=== PATIENT | female | born 1970 | race Caucasian/White ===

== ENCOUNTER → 2017-09-18 21:00 | Outpatient (CLI) | payer OTHER, SELFPAY ==
[2017-09-18 21:35] LABS: Absolute Lymphocyte Count 2.49 X10^3/ul (0.83-4.51); Absolute Neutrophil Count 6.7 X10^3/uL (2.0-7.7); Basophil# 0.07 X10^3/uL; Basophil% 0.7 % (0-1); Eosinophil# 0.11 X10^3/uL; Eosinophils% 1.1 % (0-5); Hematocrit 43.1 % (37-47); Hemoglobin 12.9 g/dl (12.0-15.0); Lymphocyte # 2.49 X10^3/ul (4.0); Lymphocyte % 24.4 % (19-41); Mean Corp Hgb Conc 29.9 g/gl (32-36); Mean Corpuscular Hgb 28.5 pg (27.0-32.0); Mean Corpuscular Volume 95.4 fL (81-99); Mean Platelet Vol. 12.6 fl (6.2-12.0); Monocyte# 0.81 X10^3/uL; Monocyte% 7.9 % (0-10); Neutrophil % 65.6 % (47-70); POSITIVE COUNT NO; POSITIVE DIFFERENTIAL NO; POSITIVE MORPHOLOGY NO; Platelet Count 335 K/mm3 (150-450); RBC Distribution Width SD 48.5 fl (35.1-43.9); Red Blood Count 4.52 M/mm3 (4.2-5.4); White Blood Count 10.2 K/mm3 (4.4-11.0)
[2017-09-18 21:39] LABS: ALB/GLOB Ratio 0.9 RATIO (0.9-2.4); AST(SGOT) 16 U/L (15-37); Alanine Aminotransfer ALT/SGPT 20 U/L (13-56); Albumin, Serum 3.7 g/dL (3.2-5.0); Alkaline Phosphatase 150 U/L (45-117); Anion Gap 7 (5-15); BUN 12 mg/dL (7-18); BUN/Creat Ratio 14.2 RATIO (10-20); Calcium,Total 9.1 mg/dL (8.5-10.1); Chloride 105 mmol/L (98-107); Creatinine, Serum 0.84 mg/dL (0.55-1.02); EST Glomerular Filtration Rate 77 mL/min (>60); Est Glom Filt Rate - Afr Amer 93 mL/min (>60); Free T3 3.2 pg/mL (2.18-3.98); Globulin 4.3 g/dL (2.2-4.2); Glucose 98 mg/dL (74-106); Potassium 4.3 mmol/L (3.5-5.1); Sodium Level 140 mmol/L (136-145); T4 Free Direct 1.13 ng/dL (0.76-1.46); Thyroid Stim Hormone (TSH) 1.73 uIU/mL (0.358-3.74)
[2017-09-19 09:50] LABS: Vitamin D,25 Hydroxy 32.5 ng/mL (29.95-100.01)
[2017-09-20 16:10] LABS: Thyroid Peroxidase AB 16 IU/mL (0-34)
[2017-09-21 11:30] LABS: Thyroglobulin Antibody < 1.0 IU/mL (0.0-0.9)
== END ==
PROVIDERS: Visit Provider Nurse Practitioner
DX: R53.83 Other fatigue (principal); F41.9 Anxiety disorder, unspecified
CPT/HCPCS: 80053; 82306; 84439; 84443; 84481; 85025; 86376; 86800

== ENCOUNTER → 2017-09-21 13:03 | Outpatient (CLI) | payer OTHER, SELFPAY ==
--- NOTE | 2017-09-21 13:09 | RAD_ITS ---
STUDY: X-RAY CHEST REASON FOR EXAM: Female, 47 years old. Chronic cough TECHNIQUE: Frontal and lateral views COMPARISON: None. FINDINGS: The lungs are expanded. Mild basilar atelectasis. Normal size heart. Normal mediastinum and adrianna. Normal visualized pulmonary arteries. Normal visualized aortic arch and descending thoracic aorta. Normal visualized thoracic spine. Normal visualized ribs, clavicles, and shoulders. There is no demonstrated abnormality of the visualized soft tissue structures of the upper abdomen. RAD/Chest PA and Lateral IMPRESSION: Mild bibasilar atelectasis. Electronically Signed: Julio Gomez DO at 14:33 EDT Tel [phone], Service support ,
== END ==
PROVIDERS: Family Provider Nurse Practitioner; PCP Nurse Practitioner; Visit Provider Nurse Practitioner
DX: R05 Cough (principal); R53.83 Other fatigue
CPT/HCPCS: 71046

== ENCOUNTER → 2017-10-11 20:54 | Outpatient (CLI) | payer OTHER, SELFPAY ==
[2017-10-11 22:26] LABS: Alkaline Phosphatase 146 U/L (45-117); GGTP 25 U/L (5-55); Phosphorus 3.2 mg/dL (2.5-4.9)
== END ==
PROVIDERS: Family Provider Nurse Practitioner; PCP Nurse Practitioner; Visit Provider Nurse Practitioner
DX: R89.9 Unspecified abnormal finding in specimens from other organs, systems and tissues (principal); R74.8 Abnormal levels of other serum enzymes; R53.83 Other fatigue
CPT/HCPCS: 82306; 82977; 84075; 84100

== ENCOUNTER 2017-10-12 13:30 | Outpatient (RCR) | payer OTHER, SELFPAY ==
--- NOTE | 2017-10-09 11:38 | HP.PTEVAL_ITS ---
Patient's Visit Information GISSELLE PULIDO is a 47 year old F referred to Physical Therapy by Johnnie Alcala MD with a diagnosis of BPPV. Date of Evaluation: 10/09/17 Physical Therapist: Johnnie Winter DPT, OC - Visit Plan Frequency: 1x/Week Duration: 2-4 Weeks Plan: weekly as needed for positional treatment and balance check until better. - Subjective Subjective: A little dizzy. Feels off Been going on 6 weeks and started getting out of bed in am and everything spun for a couple minutes. Since then has been more lightheaded and wobbly intermittently. Worse with sitting andturning head. Lying back in bed will bring it on and looking up also will bring it on. Duration is a minute or less.Feels allright in between but still wobbly or lightheaded. No falls. Sleep is not interrupted. Not employed. Activities are close to normal but laundry needs to climb steps which she is more hesitant to do. helps her. Hobbies: Not much. Orioginally saw after hours care, did some blood work and EKG and sent to Dr. Alcala. - Objective Walks slowly into PT but safe on a frim flat surface. C/S AROM WNL and without pain. - L hallpike dhiraj, + R hallpike up torsional nystagmus 10 seconds, treated with Delroy and - test after treatment. - Balance Scores Functional Gait Assessment Score: 27 % Disability: 10.0000 - Goals Goal 1:: Abolish dizzyness. Goal Time Frame: 2-4 Weeks Goal 2:: Laundry as prior to onset on steps Goal Time Frame: 2-4 Weeks Goal 3:: Pt feel 100% back to normal Goal Time Frame: 2-4 Weeks - Rehabilitation Potential Physical Therapy Diagnosis: R posterior canal BPPV Rehabilitation Potential: Excellent - Anticipated Interventions Patient/Client Instruction: Educate patient on: Condition, Plan of Care For the Purpose of:: To increase tolerance to activity/condition/position Comment: positional treatments and ex. For the Purpose of:: To increase tolerance to activity/condition/position, To improve balance Thank you for the opportunity to evaluate your patient. For Medicare and Medicare HMO plans, please review the plan of care and approve it. It will need to be FAXED BACK to us at [phone] for Medicare purposes. Please let me know if there are questions or concerns regarding this plan of care. Physician Signature: Date:
--- NOTE | 2017-11-29 11:46 | HP.PTDCSUM ---
HP - PT D/C Summary It has been my pleasure to treat GISSELLE PULIDO under orders from Johnnie Alcala MD, for the diagnosis of BPPV for a total of 2 visit(s). Discharge Date: 10/12/17 Please see the following information for a summary of their discharge status. - Subjective Subjective: Much better but still feels like it might come on but doesn't. Might be a quick wave. Nearly 100% better. Activities have been normal, sleeping and lying no problem. - Overall Improvement % Improvement: 100 - Objective Objective/Function: - B hallpike and - roll test. FGA+3 adn perfect today. - Goals Goal 1:: Abolish dizzyness. Goal Progress: Goal Met Goal 2:: Laundry as prior to onset on steps Goal Progress: Goal Met Goal 3:: Pt feel 100% back to normal Goal Progress: Goal Met - Plan Plan: D/c - D/C Information Discharge Comments: Pt treated successfully with Chela Potts and is feeling all better. Will f/u with ENT as instructed in mid October. If there are questions or concerns regarding this patient's physical therapy, please feel free to call me at [phone]. Thank you for the referral of this patient. Sincerely, Johnnie Winter, SERAT, OC
== END 2017-10-12 19:00 | disposition home or self-care (01) ==
LOC: PT 13:30
PROVIDERS: Family Provider Nurse Practitioner; PCP Nurse Practitioner; Visit Provider Otolaryngology
DX: H81.10 Benign paroxysmal vertigo, unspecified ear (principal)
CPT/HCPCS: 97162; 97530

== ENCOUNTER → 2017-11-05 12:17 | Outpatient (CLI) | payer OTHER, SELFPAY ==
--- NOTE | 2017-11-05 12:19 | BI_ITS ---
MAMMOGRAPHY - BILATERAL SCREENING REASON FOR EXAM: Female, 47 years old. Routine annual screening examination. PERTINENT HISTORY: Mother with breast cancer. Aunt with breast cancer. TECHNIQUE: Digital bilateral breast debby (3D mammographic acquisition) in the CC and MLO projections. 2-D mediolateral oblique (MLO) and craniocaudad (CC) views of both breasts were obtained. CAD: Full Field Digital Mammography with Computer Added Detection was performed. COMPARISON: Comparison is made with prior examination dated October 11, 2012. FINDINGS: Breast Composition: There are scattered areas of fibroglandular density. There are no dominant masses or suspicious calcifications. Stable benign-appearing bilateral axillary lymph nodes. No other significant abnormalities are identified. There has been no significant change since the prior study. BI/SCREENING MAMM (CAD), BILAT IMPRESSION: Stable bilateral screening mammogram. Yearly follow-up mammogram recommended. (A) ASSESSMENT CATEGORY: BIRADS Category 2: Benign. A letter regarding these results will be sent to the patient by the facility within 30 days. Approximately 10% of breast cancers are not detected by mammography. A normal mammogram should not delay biopsy of a clinically suspicious abnormality. [id number] Electronically Signed: Germán Solitario MD at 14:49 EDT Tel [phone], Service support ,
== END ==
PROVIDERS: Family Provider Nurse Practitioner; PCP Nurse Practitioner; Visit Provider Nurse Practitioner
DX: Z12.31 Encounter for screening mammogram for malignant neoplasm of breast (principal)
CPT/HCPCS: 77063; 77067

== ENCOUNTER → 2019-01-25 16:31 | Outpatient (CLI) | payer OTHER, SELFPAY ==
[2019-01-25 11:30] VITALS: BMI 30.9
[2019-01-25 16:49] LABS: Hematocrit 43.8 % (37-47); Hemoglobin 13.8 g/dL (12.0-15.0); Mean Corp Hgb Conc 31.5 g/dL (32-36); Mean Corpuscular Hgb 30.2 pg (27.0-32.0); Mean Corpuscular Volume 95.8 fL (81-99); Mean Platelet Vol. 11.8 fl (6.2-12.0); Neutrophil % 65.7 % (47-70); Platelet Count 316 K/mm3 (150-450); RBC Distribution Width CV 13.7 % (11.6-14.6); Red Blood Count 4.57 M/mm3 (4.2-5.4); White Blood Count 9.7 K/mm3 (4.4-11.0)
[2019-01-25 16:50] LABS: Absolute Lymphocyte Count 2.31 X10^3/uL (0.83-4.51); Absolute Neutrophil Count 6.4 X10^3/uL (2.0-7.7); Basophil# 0.11 X10^3/uL; Basophil% 1.1 % (0-1); Eosinophil# 0.09 X10^3/uL; Eosinophils% 0.9 % (0-5); Lymphocyte # 2.31 X10^3/ul (4.0); Lymphocyte % 23.8 % (19-41); Monocyte# 0.79 X10^3/uL; Monocyte% 8.1 % (0-10); NRBC Flagged by Analyzer 0 % (0-5); Neutrophil # 6.38 X10^3/uL (2.7-7.7)
[2019-01-25 17:03] LABS: ALB/GLOB Ratio 1.1 RATIO (0.9-2.4); AST(SGOT) 10 U/L (15-37); Alanine Aminotransfer ALT/SGPT 17 U/L (13-56); Albumin, Serum 4.1 g/dL (3.2-5.0); Alkaline Phosphatase 147 U/L (45-117); Anion Gap 6 (5-15); BUN 10 mg/dL (7-18); BUN/Creat Ratio 12.5 RATIO (10-20); Calcium,Total 9.7 mg/dL (8.5-10.1); Chloride 107 mmol/L (98-107); Cholesterol 224 mg/dL (200); EST Glomerular Filtration Rate 81 mL/min (>60); Est Glom Filt Rate - Afr Amer 99 mL/min (>60); Globulin 3.8 g/dL (2.2-4.2); Glucose 105 mg/dL (74-106); High Density Lipoprotein 44 mg/dL; Potassium 4.6 mmol/L (3.5-5.1); Protein, Total 7.9 g/dL (6.4-8.2); Sodium Level 142 mmol/L (136-145); Triglycerides 185 mg/dL; Very Low Density Lipoprotein 37 mg/dL (5-40)
[2019-01-27 09:11] LABS: Vitamin D,25 Hydroxy 43.3 ng/mL (29.95-100.01)
== END ==
PROVIDERS: Family Provider Nurse Practitioner; PCP Nurse Practitioner; Visit Provider Nurse Practitioner
DX: F32.9 Major depressive disorder, single episode, unspecified (principal); E55.9 Vitamin D deficiency, unspecified
CPT/HCPCS: 80053; 80061; 82306; 85025

== ENCOUNTER → 2019-07-15 08:00 | Outpatient (CLI) | payer OTHER, SELFPAY ==
[2019-05-20 16:49] VITALS: BMI 29.8
[2019-07-22 06:36] VITALS: BP 164/103; PULSE 91; RESP 18; TEMP 36.7; O2SAT 97; BMI 32.2
== END ==
PROVIDERS: Anesthesiology; PCP Nurse Practitioner; Referring Provider Urology; Visit Provider Urology
DX: Z01.812 Encounter for preprocedural laboratory examination (principal); Z11.59 Encounter for screening for other viral diseases
CPT/HCPCS: 87635; G2023; J7120; U0003

== ENCOUNTER → 2019-10-23 09:54 | Outpatient (CLI) | payer OTHER, SELFPAY ==
[2019-10-08 11:19] VITALS: BMI 33.6
--- NOTE | 2019-10-23 09:56 | ECHOD_ITS ---
Version 2 Reason For Study: TACHYCARDIA Procedure Exam performed in department. Left Ventricle Normal LV size. The estimated ejection fraction is 55 %. No evidence for diastolic dysfunction. Right Ventricle Normal RV size. Normal systolic function. Atria Normal left atrium. Normal right atrium. No doppler evidence for ASD. Mitral Valve There is no mitral valve stenosis. No mitral valve insufficiency. Tricuspid Valve No significant tricuspid stenosis. Trivial tricuspid valve insufficiency. Unable to estimate RV systolic pressure due to insufficient tricuspid regurgitant envelope. Aortic Valve Trisinus/trileaflet aortic valve. There is no aortic stenosis. No aortic valve insufficiency. Pulmonic Valve There is no pulmonic valvular stenosis. Trivial pulmonic valve insufficiency. Great Vessels Normal aortic root. Pericardium/Pleural No pericardial effusion. MMode/2D Measurements & Calculations LVIDd: 4.6 cm IVSd: 0.89 cm Ao root diam: 3.2 cm LVIDs: 3.2 cm LVPWd: 0.95 cm RVDd: 2.8 cm FS: 29.8 % LAV(MOD-bp): 50.5 ml LA A4 area: 18.0 cm2 LA dimension(2D): 3.0 cm LAV(MOD-bp) Indexed: 28.3 ml/m2 LAV(MOD-sp2): 50.1 ml LAV(MOD-sp4): 48.1 ml RA A4 area: 12.0 cm2 Time Measurements MV dec time: 0.15 sec Doppler Measurements & Calculations MV E max pato: 42.0 cm/sec Lat Peak E' Pato: 7.6 cm/sec Med Peak E' Pato: 5.9 cm/sec MV A max pato: 82.4 cm/sec E/E' lat: 5.5 E/E' med: 7.2 MV E/A: 0.51 Ao V2 max: 100.7 cm/sec LV V1 max: 72.7 cm/sec TR max pato: 268.5 cm/sec Ao max P.1 mmHg LV V1 max P.1 mmHg TR max P.8 mmHg Interpretation Summary The estimated ejection fraction is 55 %. No evidence for diastolic dysfunction. Trivial pulmonic valve insufficiency. Ordering Physician: Gera Lee Referring Physician: CAROL ANN HANDY Performed By: Kristin Hong, ONUR, RVT
== END ==
PROVIDERS: PCP Nurse Practitioner; Referring Provider Specialist; Visit Provider Specialist
DX: R00.0 Tachycardia, unspecified (principal); I10 Essential (primary) hypertension
CPT/HCPCS: 93306

== ENCOUNTER → 2019-10-28 07:02 | Outpatient (CLI) | payer OTHER, SELFPAY ==
[2019-08-05 15:38] VITALS: BMI 32.3
[2019-09-23 06:25] VITALS: BP 154/104; PULSE 92; RESP 18; TEMP 36.7; O2SAT 95; BMI 33.6
[2019-09-23] MEDS: Lactated Ringers 1,000 ML 100 ML IV (07:03)
--- NOTE | 2019-09-23 07:41 | SUR.PREOP ---
Dr moore cancelled surgery due to bp, wants pt cleared by cardiology. p 86, pulse ox 93%, resps 14, bp 152/101. iv removed, pt will ring when she is dressed and ready to go.
[2019-10-08 11:19] VITALS: BMI 33.6
== END ==
LOC: SDC 09-23 06:00 → AC 09-23 07:46 → SDC 07:05
PROVIDERS: Anesthesiology; PCP Nurse Practitioner; Referring Provider Urology; Visit Provider Urology
DX: Z53.9 Procedure and treatment not carried out, unspecified reason (principal); Z11.59 Encounter for screening for other viral diseases
CPT/HCPCS: 87635; 94799; J7120; J2405; U0003

== ENCOUNTER 2019-12-09 05:57 | Day surgery (SDC) | payer OTHER, SELFPAY ==
[2019-10-08 11:19] VITALS: BMI 33.6
[2019-12-09] VITALS (13 sets, daily range): BP systolic 117–154; BP diastolic 77–98; PULSE 81–88; RESP 16–20; TEMP 36.2–37.1; O2SAT 89–95; BMI 32.8
[2019-12-09 06:38] LABS: Hematocrit 40.1 % (37-47); Hemoglobin 12.3 g/dL (12.0-15.0); Mean Corp Hgb Conc 30.7 g/dL (32-36); Mean Corpuscular Hgb 29.9 pg (27.0-32.0); Mean Corpuscular Volume 97.6 fL (81-99); Mean Platelet Vol. 10.4 fl (6.2-12.0); Platelet Count 283 K/mm3 (150-450); RBC Distribution Width CV 13.6 % (11.6-14.6); RBC Distribution Width SD 48.6 fl (35.1-43.9); Red Blood Count 4.11 M/mm3 (4.2-5.4); White Blood Count 8.4 K/mm3 (4.4-11.0)
[2019-12-09] MEDS: Lactated Ringers 1,000 ML 100 ML IV ×2 (06:46→09:16)
[2019-12-09] MEDS: Cefazolin 2 GM in 0.9% Normal Saline 100 ML IV (07:30)
--- NOTE | 2019-12-09 07:30 | OP.PCM_ITS ---
Problem List (1) Stress bladder incontinence, female Status: Acute Report of Operation Date of Procedure: 12/09/19 Pre-Operative Diagnosis: stress incontinence Post-Operative Diagnosis: same Surgery/Procedure Performed:: midurethral sling, cystoscopy Type of Anesthesia:: General Estimated Blood Loss (mL): 20cc Description of Procedure: The patient is a 49-year-old female with mixed urinary incontinence who presents for definitive management of her stress leakage with mid urethral sling insertion. Informed consent was obtained including a discussion of COVID-Leo. Patient was taken to the operating room and placed on the operating room table. Anesthesia monitored the head, neck, airway, IV access and vital signs throughout the case. Once anesthesia was apparently administered the patient was placed into dorsal lithotomy position was prepped and draped in usual sterile fashion. A 16 [place] Belcher catheter was inserted and the bladder was drained. The mid urethra was identified and injected submucosally with lidocaine with epinephrine. A midline vertical incision was made approximately 1 cm in length. Sharp and blunt dissection was performed on either side of the urethra with care being taken to avoid entry into the urethra. The urethral length was short. Using the trocars, the Altis mid urethral sling was passed into the obturator complexes bilaterally and left to sit flat against the urethra. There is no tension on the urethra. The tensioning suture was cut in the midline incision was closed using running interlocking 2-0 Vicryl. A small area of the vaginal mucosa was lacerated at the urethral meatus. Suture was placed here as well. A cystourethroscopy through the urethra under direct visualization was then performed. There were no lesions or abnormalities of the urinary bladder aside from some edema in the area of the bladder neck and urethra. Bilateral ureteral jets were observed. There were no mucosal abnormalities. The patient's bladder was left minimally full and the scope was removed. The patient was then awakened and taken to the recovery room in good condition. There were no complications during the procedure. Grafts/Implants Used: Altis midurethral sling - Complications none - Admit VTE Documentation VTE Present on Admission: Yes VTE Mechan Device Prophylaxis: SCD's VTE Pharm Prophylaxis ordered?: No Reason prophylaxis not ordered:: Treatment Not Indicated
--- NOTE | 2019-12-09 08:07 | DCINST_ITS ---
Discharge Diet: No Restrictions Discharge Activity: May not drive while taking narcotic pain medications., May Shower, - - No tub bathing, swimming, hot tubs. No lifting over 5 pounds. No strenuous activity or exercise. No intercourse, nothing per vagina. May resume sexual activity in: 4-6 weeks Call your doctor if your incision/area has: Continuous Slow Oozing, Sudden Increased Bleeding, Increased Pain/ Swelling, Increased Redness, Foul Smelling Discharge, Swelling at the incision site Call your doctor if you observe: Fever of 101 or Higher, Inability to urinate, Inability to have a bowel movement Allergies/Adverse Reactions: Allergies amoxicillin trihydrate [From Augmentin] Adverse Reaction (Verified 12/09/19 06:32) Nausea/Vom/Diarrhea potassium clavulanate [From Augmentin] Adverse Reaction (Verified 12/09/19 06:32) Nausea/Vom/Diarrhea Medications to take at Discharge Multivitamin [Daily Multiple Vitamin] 1 ea PO DAILY 06/14/15 gabapentin 300 mg capsule 300 mg PO QHS #90 cap 03/14/19 omeprazole 20 mg capsule,delayed release 20 mg PO DAILY #90 cap 03/14/19 oxybutynin chloride 10 mg tablet,extended release 24 hr 10 mg PO DAILY 05/20/19 Cholecalciferol (Vitamin D3) [Vitamin D3] 5,000 unit PO DAILY 07/15/19 Loratadine [Claritin] 10 mg PO DAILY 07/15/19 fluticasone propionate 50 mcg/actuation nasal spray,suspension 1 spray INTRANASAL BID 07/24/19 bupropion HCl 100 mg tablet 100 mg PO QDAY tab 09/22/19 Biotin 10,000 mcg PO DAILY 11/28/19 Duloxetine HCl [Cymbalta] 80 mg PO DAILY 11/28/19 BP monitor 0 .ROUTE .MEDSUPPLY #1 ea 12/03/19 Carvedilol 12.5 mg PO BID 12/09/19 Cephalexin [Keflex] 500 mg PO Q12 3 Days #6 cap 12/09/19 Oxycodone HCl/Acetaminophen [Percocet 5/325] 2 tab PO Q8H PRN PRN 7 Days #20 tab 12/09/19 The following prescriptions were given: Cephalexin [Keflex] 500 mg PO Q12 3 Days #6 cap Transmission Status: Received by [facility] Oxycodone HCl/Acetaminophen [Percocet 5/325] 2 tab PO Q8H PRN PRN 7 Days #20 tab PRN Reason: Pain Transmission Status: Pending to [facility] Primary Care Physician: Gloria Le SITE SAFETY REPRESENTATIVE, SITE SAFETY REPRESENTATIVE-C [Primary Care Provider] - Test Results: Test results from this visit will be discussed in further detail at your follow- up appointment, if applicable. Please Follow Up With: Kaila Mota MD When: call office for appt. Proposed Discharge Date: 12/09/19
[2019-12-09] MEDS: Ipratropium/Albuterol Sulfate 3 ML AMPUL.NEB INHALATION (09:01)
[2019-12-09] MEDS: Acetaminophen 325 MG Tablet PO (10:15)
[2019-12-09] MEDS: oxyCODONE 5 MG Tablet PO (10:15)
== END 2019-12-09 11:07 | disposition home or self-care (01) ==
LOC: SDC 05:58 → AC 05:59
PROVIDERS: Anesthesiology; PCP Nurse Practitioner; Referring Provider Urology; Visit Provider Urology
PROC: 0TJB8ZZ Inspection of Bladder, Via Natural or Artificial Opening Endoscopic (ICD-10-PCS; CPT 57288; principal; 2019-12-09 07:20)
DX: N39.46 Mixed incontinence (principal); Z20.828 Contact with and (suspected) exposure to other viral communicable diseases; F41.9 Anxiety disorder, unspecified; F32.9 Major depressive disorder, single episode, unspecified; Z79.899 Other long term (current) drug therapy; Z79.51 Long term (current) use of inhaled steroids; I10 Essential (primary) hypertension; F17.210 Nicotine dependence, cigarettes, uncomplicated
CPT/HCPCS: 00860; 57288; 36415; 85027; 87635; 94640; C9803; J7120; J2405; U0003

== ENCOUNTER → 2020-03-19 22:21 | Outpatient (CLI) | payer OTHER, SELFPAY ==
[2020-03-19 16:52] VITALS: BMI 32.8
[2020-03-19 22:30] LABS: Hematocrit 38.3 % (37-47); Hemoglobin 11.7 g/dL (12.0-15.0); Mean Corp Hgb Conc 30.5 g/dL (32-36); Mean Corpuscular Hgb 29.4 pg (27.0-32.0); Mean Corpuscular Volume 96.2 fL (81-99); Mean Platelet Vol. 11.3 fl (6.2-12.0); Platelet Count 352 K/mm3 (150-450); RBC Distribution Width CV 13.8 % (11.6-14.6); RBC Distribution Width SD 49.1 fl (35.1-43.9); Red Blood Count 3.98 M/mm3 (4.2-5.4); White Blood Count 8.7 K/mm3 (4.4-11.0)
[2020-03-19 22:51] LABS: Follicle Stimulating Hormone 63.3 mIU/mL; Luteinizing Hormone 31.1 mIU/mL
== END ==
PROVIDERS: Anesthesiology; PCP Nurse Practitioner; Visit Provider Nurse Practitioner
DX: N95.1 Menopausal and female climacteric states (principal)
CPT/HCPCS: 83001; 83002; 85027

== ENCOUNTER → 2020-04-27 21:35 | Outpatient (CLI) | payer OTHER, SELFPAY ==
[2020-04-27 21:48] LABS: Absolute Lymphocyte Count 3.73 X10^3/uL (0.83-4.51); Absolute Neutrophil Count 6.6 X10^3/uL (2.0-7.7); Basophil% 0.9 % (0-1); Eosinophil# 0.15 X10^3/uL; Eosinophils% 1.3 % (0-5); Hematocrit 39.4 % (37-47); Hemoglobin 12.2 g/dL (12.0-15.0); Lymphocyte # 3.73 X10^3/ul (4.0); Lymphocyte % 32.6 % (19-41); Mean Corpuscular Hgb 29.8 pg (27.0-32.0); Mean Corpuscular Volume 96.3 fL (81-99); Mean Platelet Vol. 11.9 fl (6.2-12.0); Monocyte# 0.82 X10^3/uL; Monocyte% 7.2 % (0-10); NRBC Flagged by Analyzer 0 % (0-5); Neutrophil # 6.58 X10^3/uL (2.7-7.7); Neutrophil % 57.5 % (47-70); Platelet Count 383 K/mm3 (150-450); RBC Distribution Width CV 14.2 % (11.6-14.6); RBC Distribution Width SD 49.6 fl (35.1-43.9); Red Blood Count 4.09 M/mm3 (4.2-5.4); White Blood Count 11.4 K/mm3 (4.4-11.0)
== END ==
PROVIDERS: Visit Provider Nurse Practitioner
DX: D64.9 Anemia, unspecified (principal)
CPT/HCPCS: 85025

== ENCOUNTER 2020-08-21 14:04 | Emergency (ER) | payer OTHER, SELFPAY ==
[2020-08-21 14:04] VITALS: BP 189/120
[2020-08-21 14:06] VITALS: BP 203/124; PULSE 105; RESP 14; TEMP 36.8; O2SAT 94; BMI 32.6
--- NOTE | 2020-08-21 14:23 | RAD_ITS ---
EXAM: XR RIGHT FOOT COMPLETE, 3 OR MORE VIEWS : 1970 CLINICAL INDICATION: pain after rolling foot TECHNIQUE: Frontal, lateral and oblique views of the right foot. This report was created using [employer] report generation technology. COMPARISON: None. FINDINGS: BONES/JOINTS: Unremarkable. No acute fracture. No subluxation. Normal alignment. Preservation of the joint space. No sclerotic or destructive changes observed. SOFT TISSUES: Unremarkable. No soft tissue swelling or gas. No radiopaque foreign body. RAD/Foot min 3 Views IMPRESSION: Negative right foot x-rays. at 1501 Reported and signed by: Burke Nichole MD Electronically Signed: Burke Nichole MD at 15:00 EDT Tel , Service support ,
--- NOTE | 2020-08-21 14:24 | EDS_ITS ---
HPI History of Present Illness Chief Complaint: Lower Extremity Injury Narrative Narrative: 50-year-old female presenting with right ankle pain. She states that she lost her footing and may have twisted her foot and ankle backwards. She is ambulatory. She denies paresthesias. She does have bruising and swelling and localizes the pain to the right lateral malleolus as well as the dorsum of the right foot. She has no knee pain [facility] Medical History Anxiety disorder Depression Essential hypertension Fatigue GERD (gastroesophageal reflux disease) Hot flashes Malaise Pelvis tilted Preop cardiovascular exam Prolapsed bladder Restless leg Tachycardia Urge incontinence of urine Vitamin D deficiency Home Medications multivitamin 1 ea PO DAILY 06/14/15 [History Last Taken 09/22/19] oxybutynin chloride 10 mg tablet,extended release 24 hr 10 mg PO DAILY 05/20/19 [History Last Taken 09/22/19] cholecalciferol (vitamin D3) 5,000 unit PO DAILY 07/15/19 [History Last Taken 09/22/19] loratadine 10 mg PO DAILY 07/15/19 [History Last Taken 09/22/19] fluticasone propionate 50 mcg/actuation nasal spray,suspension 1 spray INTRANASAL BID 07/24/19 [History Last Taken 09/22/19] bupropion HCl 100 mg tablet 100 mg PO QDAY tab 09/22/19 [History Last Taken Unknown] biotin 10,000 mcg PO DAILY 11/28/19 [History Last Taken Unknown] BP monitor #1 ea 12/03/19 [Rx Last Taken Unknown] carvedilol 12.5 mg PO BID 12/09/19 [History Last Taken 12/09/19] gabapentin 300 mg capsule 300 mg PO QHS #90 cap 03/19/20 [Rx Last Taken Unknown] lactobacillus combination no.4 3 billion cell capsule 3,000 mmu cells PO DAILY 03/19/20 [History Last Taken Unknown] omeprazole 20 mg capsule,delayed release 20 mg PO DAILY #90 cap 03/19/20 [Rx Last Taken Unknown] duloxetine 20 mg capsule,delayed release 20 mg PO DAILY #90 cap 04/05/20 [Rx Last Taken Unknown] duloxetine 60 mg capsule,delayed release 60 mg PO DAILY #90 cap 04/05/20 [Rx Last Taken Unknown] lisinopril 5 mg tablet 5 mg PO DAILY #90 tab 04/15/20 [Rx Last Taken Unknown] Allergy/AdvReac Type Severity Reaction Status Date / Time amoxicillin trihydrate AdvReac Nausea/Vom/ Verified 08/21/20 14:06 [From Augmentin] Diarrhea potassium clavulanate AdvReac Nausea/Vom/ Verified 08/21/20 14:06 [From Augmentin] Diarrhea Family History Mother Breast cancer Father Diabetes Heart disease Surgical History Feeling of incomplete bladder emptying H/O hysterectomy with oophorectomy H/O umbilical hernia repair YOKASTA AND BSO DUE TO ENDOMETRIOSIS IN 1999 Social History Smoking Status: Current every day smoker tobacco type: cigarettes alcohol intake: current alcohol intake frequency: a few times a month substance use type: does not use caffeine: Yes Type: coffee Number of servings: 2 ROS ROS ED Constitutional Constitutional ED: Denies chills or fever(s) Eyes Eyes: Denies blurry vision or diplopia ENT ENT ED: Denies rhinorrhea or sore throat Cardiovascular Cardiovascular: Denies chest pain or palpitations Respiratory/Chest Respiratory/Chest: Denies cough or dyspnea Gastrointestinal Gastrointestinal: Denies abdominal pain, nausea or vomiting Musculoskeletal Musculoskeletal: Reports other Details: Right ankle and foot pain ; Denies back pain or neck pain Integumentary Reports other Details: Bruising and swelling of right foot Neurologic Neurologic: Denies headache(s) or paresthesias Psychiatric Psychiatric: Denies anxiety or depression EXAM Physical Exam Const Vital Signs: 08/21/20 14:04 08/21/20 14:06 08/21/20 15:23 Temperature 98.2 F Temperature Source Temporal Pulse Rate 105 H Respiratory Rate 14 Blood Pressure 189/120 H 203/124 H 189/107 H Blood Pressure Mean 143 150 Pulse Ox 94 Oxygen Delivery Method Room Air Positive well nourished General Appearance ED: NAD HEENT Reports moist mucous membranes Negative for trauma Eyes PERRL and EOMs intact bilaterally Resp normal respiratory effort and no use of accessory muscles Cardio regular rate Rate: tachycardic Extremity Extremity Narrative: Tenderness to palpation over the right lateral malleoli as well as the dorsum of the right foot. There is ecchymosis surrounding this area and swelling. Patient's right foot is neurovascular intact with brisk refill to all 5 toes. There is no pain at the base of the right fifth metatarsal. There is no pain at the right fibular head Neuro oriented x3 Sensorium / Orientation: alert Psych mental status grossly normal Skin Skin Narrative: Bruising and swelling as noted above MDM MDM MDM Narrative Medical decision making narrative: Patient presents with right ankle and foot pain after twisting her foot and ankle. She has bruising and swelling but is ambulatory. I obtained imaging of the right ankle and right foot which on my interpretation show no acute fracture or subluxations. Patient placed in Triston wrap and Aircast. She does not require crutches as she is already ambulatory. She is counseled to alternate Tylenol and ibuprofen for pain. She is counseled to ice and elevate. Patient stable for discharge. Impression: 1. Right ankle sprain 2. Right foot sprain Radiography Diagnostic Testing: Radiology Impression Foot X-Ray 08/21/20 14:23 IMPRESSION: Negative right foot x-rays. at 1501 Reported and signed by: Burke Nichole MD Electronically Signed: Burke Nichole MD at 15:00 EDT Tel , Service support , Ankle X-Ray 08/21/20 14:27 IMPRESSION: Negative right ankle x-rays. at 1501 Reported and signed by: Burke Nichole MD Electronically Signed: Burke Nichole MD at 15:00 EDT Tel , Service support , Discharge Plan Triage Chief Complaint: Lower Extremity Injury ED Provider: Marcial Cotton Dx/Rx/DC Orders Instructions: ED Foot Sprain, ED Ankle Sprain (Adult) Prescriptions: No Action lisinopril 5 mg tablet 5 mg PO DAILY Qty: 90 RF: 2 oxybutynin chloride 10 mg tablet extended release 24hr 10 mg PO DAILY RF: 0 fluticasone propionate 50 mcg/actuation spray,suspension 1 spray INTRANASAL BID RF: 0 bupropion HCl 100 mg tablet 100 mg PO QDAY RF: 0 Probiotic 3 billion cell capsule 3,000 mmu cells PO DAILY RF: 0 gabapentin 300 mg capsule 300 mg PO QHS Qty: 90 RF: 3 omeprazole 20 mg capsule,delayed release(DR/EC) 20 mg PO DAILY Qty: 90 RF: 3 multivitamin 1 EACH tablet 1 ea PO DAILY RF: 0 loratadine 10 MG capsule 10 mg PO DAILY RF: 0 cholecalciferol (vitamin D3) 5,000 UNIT tablet,disintegrating 5,000 unit PO DAILY RF: 0 biotin 10,000 MCG capsule 10,000 mcg PO DAILY RF: 0 carvedilol 12.5 MG tablet 12.5 mg PO BID RF: 0 (DME) BP monitor 0 .Route .MEDSUPPLY Qty: 1 RF: 0 duloxetine 20 mg capsule,delayed release(DR/EC) 20 mg PO DAILY Qty: 90 RF: 3 duloxetine 60 mg capsule,delayed release(DR/EC) 60 mg PO DAILY Qty: 90 RF: 3 Primary Care Provider: Gloria Le NP Referrals: Gloria Le NP, WIRE TINNER-C [Primary Care Provider] - Disposition Discharge Date/Time: 08/21/20 15:24
--- NOTE | 2020-08-21 14:27 | RAD_ITS ---
EXAM: XR RIGHT ANKLE COMPLETE, 3 OR MORE VIEWS : 1970 CLINICAL INDICATION: ankle pain after rolling it TECHNIQUE: Frontal, lateral and oblique views of the right ankle. This report was created using [employer] report generation technology. COMPARISON: None. FINDINGS: BONES/JOINTS: Unremarkable. No acute fracture. No subluxation. Normal alignment. Preservation of the joint space. No sclerotic or destructive changes observed. SOFT TISSUES: Unremarkable. No soft tissue swelling or gas. No radiopaque foreign body. RAD/Ankle min 3 Views IMPRESSION: Negative right ankle x-rays. at 1501 Reported and signed by: Burke Nichole MD Electronically Signed: Burke Nichole MD at 15:00 EDT Tel , Service support ,
[2020-08-21] MEDS: HYDROcodone Bitartrate/Apap 5/325 Tablet PO (15:07)
[2020-08-21 15:23] VITALS: BP 189/107
== END 2020-08-21 15:24 | disposition home or self-care (01) ==
PROVIDERS: Emergency Provider Student in an Organized Health Care Education/Training Program; PCP Nurse Practitioner
DX: S93.401A Sprain of unspecified ligament of right ankle, initial encounter (principal); S93.601A Unspecified sprain of right foot, initial encounter; F17.210 Nicotine dependence, cigarettes, uncomplicated; I10 Essential (primary) hypertension; F32.9 Major depressive disorder, single episode, unspecified; K21.9 Gastro-esophageal reflux disease without esophagitis; Z79.899 Other long term (current) drug therapy; X50.1XXA Overexertion from prolonged static or awkward postures, initial encounter
CPT/HCPCS: 73610; 73630; 99283

== ENCOUNTER 2021-10-17 23:43 | Inpatient (IN) | payer BC, SELFPAY ==
--- NOTE | 2021-10-17 00:45 | RAD_ITS ---
STUDY: X-RAY CHEST REASON FOR EXAM: Female, 51 years old patient with dyspnea. TECHNIQUE: PA and lateral views of the chest. COMPARISON: Chest radiograph dated 09/21/2017. FINDINGS: Cardiac monitoring leads are present. The lungs are expanded. There are extensive bilateral heterogeneous airspace consolidations, left greater than right. There is associated groundglass attenuation within the left lung base and possibly left upper lobe as well. There is no demonstrated pleural abnormality. There is borderline cardiomegaly. Normal mediastinum and adrianna. Normal visualized pulmonary arteries. Normal visualized aortic arch and descending thoracic aorta. Normal visualized thoracic spine. Normal visualized ribs, clavicles, and shoulders. There is no demonstrated abnormality of the visualized soft tissue structures of the upper abdomen. RAD/Chest PA and Lateral IMPRESSION: Extensive bilateral multifocal pneumonia. Electronically Signed: Gela Cee MD at 1:06 EDT ,
[2021-10-17 23:44] VITALS: BP 103/65; PULSE 110; RESP 20; TEMP 36.7; O2SAT 72; BMI 32.1
[2021-10-17 23:54] VITALS: BP 103/65; PULSE 111; RESP 32; TEMP 36.7; O2SAT 86
--- NOTE | 2021-10-17 23:59 | EKG12_ITS ---
Test Reason : SOB Blood Pressure : / mmHG Vent. Rate : 116 BPM Atrial Rate : 116 BPM P-R Int : 148 ms QRS Dur : 078 ms QT Int : 332 ms P-R-T Axes : 053 075 045 degrees QTc Int : 461 ms Sinus tachycardia Possible Left atrial enlargement Borderline ECG Confirmed by MATT ROBERSON, TUSHAR ([id number]), field map editor BEULAH ZAPIEN ([id number]) on 10/18/2021 9:52:31 AM Referred By: Confirmed By:TUSHAR GUTIERREZ MD
[2021-10-18] VITALS (69 sets, daily range): BP systolic 51–134; BP diastolic 21–109; PULSE 103–120; RESP 12–43; TEMP 36.6–36.7; O2SAT 43–137; BMI 31.6; BMI 27.1
--- NOTE | 2021-10-18 00:11 | EDS_ITS ---
HPI History of Present Illness Chief Complaint: General Illness Informant: patient Onset/Context/Timing Onset: Yesterday Context: Gradual Onset Timing: Continuous Quality: Sharp Location: Chest Worsened by: Exertion, laying flat Relieved by: Nothing Narrative Narrative: Patient presents with shortness of breath that began yesterday. Patient states it is gradually getting worse. Patient states it has been constant. Patient states her breathing is worse with any exertion and with laying flat. Patient states nothing seems to help with it. Patient admits to a cough with some green sputum. Patient also admits to some rhinorrhea and ear pain. Patient admits to a fever of 100.5 at home. Patient describes sharp pain in her chest. Patient admits to recent travel to [place] last weekend. [facility] Medical History Anxiety disorder Depression Essential hypertension Fatigue GERD (gastroesophageal reflux disease) Hot flashes Malaise Pelvis tilted Preop cardiovascular exam Prolapsed bladder Restless leg Tachycardia Urge incontinence of urine Vitamin D deficiency Home Medications multivitamin 1 ea PO DAILY 06/14/15 [History Last Taken 09/22/19] cholecalciferol (vitamin D3) 125 mcg (5,000 unit) disintegrating tablet 5,000 unit PO DAILY 07/15/19 [History Last Taken 09/22/19] bupropion HCl 100 mg tablet 100 mg PO QDAY 09/22/19 [History Last Taken Unknown] biotin 10,000 mcg capsule 10,000 mcg PO DAILY 11/28/19 [History Last Taken Unknown] BP monitor #1 ea 12/03/19 [Rx Last Taken Unknown] lactobacillus combination no.4 3 billion cell capsule (Probiotic) 3,000 mmu cells PO DAILY 03/19/20 [History Last Taken Unknown] tramadol 50 mg tablet 50 mg PO Q6H PRN pain #90 tabs 09/16/20 [Rx Last Taken Unknown] carvedilol 12.5 mg tablet 12.5 mg PO BID #180 tabs 09/28/20 [Rx Last Taken Unknown] duloxetine 20 mg capsule,delayed release 20 mg PO DAILY #90 caps 09/28/20 [Rx L ast Taken Unknown] duloxetine 60 mg capsule,delayed release 60 mg PO DAILY #90 caps 09/28/20 [Rx Last Taken Unknown] fluticasone propionate 50 mcg/actuation nasal spray,suspension 1 spray intranasal BID #16 grams 09/28/20 [Rx Last Taken Unknown] gabapentin 300 mg capsule 300 mg PO QHS #90 caps 09/28/20 [Rx Last Taken Unknown] lisinopril 5 mg tablet 5 mg PO DAILY #90 tabs 09/28/20 [Rx Last Taken Unknown] loratadine 10 mg capsule 10 mg PO DAILY #30 caps 09/28/20 [Rx Last Taken Unknown] omeprazole 20 mg capsule,delayed release 20 mg PO DAILY #90 caps 09/28/20 [Rx Last Taken Unknown] oxybutynin chloride 10 mg tablet,extended release 24 hr 10 mg PO DAILY #90 tabs 09/28/20 [Rx Last Taken Unknown] Allergy/AdvReac Type Severity Reaction Status Date / Time tramadol Allergy Severe Itching Verified 10/17/21 23:47 amoxicillin trihydrate AdvReac Nausea/Vom/ Verified 10/17/21 23:47 [From Augmentin] Diarrhea potassium clavulanate AdvReac Nausea/Vom/ Verified 10/17/21 23:47 [From Augmentin] Diarrhea Family History Mother Breast cancer Father Diabetes Heart disease Surgical History Feeling of incomplete bladder emptying H/O hysterectomy with oophorectomy H/O umbilical hernia repair YOKASTA AND BSO DUE TO ENDOMETRIOSIS IN 1999 Social History Smoking Status: Current every day smoker tobacco type: cigarettes alcohol intake: current alcohol intake frequency: a few times a month substance use type: does not use caffeine: Yes Type: coffee Number of servings: 2 ROS ROS ED Constitutional Constitutional ED: Reports fever(s); Denies chills Eyes Eyes: Denies blurry vision or change in vision ENT ENT ED: Reports ear pain bilateral and rhinorrhea Cardiovascular Cardiovascular: Reports chest pain; Denies palpitations Respiratory/Chest Respiratory/Chest: Reports cough and dyspnea Gastrointestinal Gastrointestinal: Reports nausea; Denies vomiting Genitourinary Genitourinary ED: Denies dysuria or hematuria Musculoskeletal Musculoskeletal: Reports neck pain; Denies back pain Integumentary Denies abscess or rash Neurologic Neurologic: Reports headache(s); Denies weakness Allergic/Immunologic Allergic/Immunologic ED: Denies mouth swelling or urticaria EXAM Physical Exam Const Vital Signs: 10/17/21 23:44 10/17/21 23:54 10/18/21 00:20 Temperature 98.0 F 98.0 F Temperature Source Temporal Oral Pulse Rate 110 H 111 H 116 H Respiratory Rate 20 H 32 H 37 H Respiratory Pattern Blood Pressure 103/65 103/65 Blood Pressure Mean 77 77 Pulse Ox 72 86 91 Oxygen Delivery Method Room Air Non-Rebreather Bi-pap Oxygen Flow Rate (L/min) 15 Fraction of Inspired Oxygen (FIO2) 100 10/18/21 01:35 10/18/21 01:35 10/18/21 01:38 Temperature 98.0 F 98.0 F Temperature Source Axillary Axillary Pulse Rate 104 H 103 H Respiratory Rate 25 H 35 H Respiratory Pattern Blood Pressure 94/82 H 94/82 H 94/82 H Blood Pressure Mean 86 86 86 Pulse Ox 99 99 Oxygen Delivery Method Bi-pap Bi-pap Oxygen Flow Rate (L/min) Fraction of Inspired Oxygen (FIO2) 100 100 10/18/21 00:14 Temperature Temperature Source Pulse Rate 116 H Respiratory Rate 39 H Respiratory Pattern Tachypnea Blood Pressure Blood Pressure Mean Pulse Ox Oxygen Delivery Method Oxygen Flow Rate (L/min) Fraction of Inspired Oxygen (FIO2) Positive well nourished and well developed General Appearance ED: well developed HEENT Reports moist mucous membranes Neck supple and no JVD Resp Auscultation: rhonchi throughout Cardio regular rhythm and no murmurs Rate: tachycardic GI normal to inspection, nondistended, normoactive bowel sounds and non-tender Palpation: soft Extremity normal to inspection General Extremety ED: Negative for edema or tenderness General Extremity: Negative for edema Neuro oriented x3, CN's II-XII intact bilaterally and no sensory deficits noted Sensorium / Orientation: alert Motor Exam: strength 5/5 throughout Psych mental status grossly normal Skin no rashes or lesions noted MDM MDM MDM Narrative Medical decision making narrative: Patient was placed on nonrebreather mask initially. Patient is oxygen saturation only improved to 88% while on a nonrebreather mask. Because of this, BiPAP was started. Patient was given IV fluids. PA and lateral chest x-ray was obtained. There are 2 views. On my interpretation, there are bilateral upper and lower lobe infiltrates. There is no pneumothorax. Radiologist also interpreted the x-ray and agrees. CBC shows a normal white blood cell count but a left shift. Basic metabolic profile shows a creatinine of 1.71 and a BUN of 39. Sodium was 126 and chloride was 86. Potassium was 3.0. Anion gap was 15. High-sensitivity troponin was less than 3. Lactate was elevated at 4.2. D- dimer was elevated at 3.61. BNP was only slightly elevated at 147.2. EKG was obtained. On my interpretation it shows a sinus tachycardia with a rate of 116. There are no acute ST or T wave changes noted. NC interval, QRS interval, and QTc intervals are normal. Stacy is normal. Because of the elevated D-dimer, CTA of the chest was obtained. There is no evidence of pulmonary embolism or aortic dissection. This was interpreted by the radiologist and reviewed by myself. Patient was started on Rocephin and Zithromax. Patient was given a DuoNeb aerosol here. Patient was given oral potassium and IV potassium. Case was discussed with the hospitalist. He will admit the patient to his service to the intensive care unit. Patient understood and was agreeable with the plan. All questions were answered. Lab Data Attestation: I reviewed the patient's lab results. Labs: Laboratory Results - last 24 hr 10/18/21 10/18/21 10/18/21 00:00 00:00 00:00 WBC 6.4 RBC 3.84 L Hgb 12.7 Hct 38.4 MCV 100.0 H MCH 33.1 H MCHC 33.1 RDW Std Deviation 48.2 H RDW Coeff of Elvira 13.1 Plt Count 233 MPV 11.8 Immature Gran % (Auto) 1.700 H Neut % (Auto) 92.7 H Lymph % (Auto) 3.6 L Arch[place] % (Auto) 1.2 Eos % (Auto) 0.0 Baso % (Auto) 0.8 Absolute Neuts (auto) 6.0 Absolute Lymphs (auto) 0.23 L Nucleated RBC % 0.3 Toxic Granulation 2+ Macrocytosis 1+ D-Dimer Quant (PE/DVT) 3.61 H* Sodium 126 L Potassium 3.0 L Chloride 86 L Carbon Dioxide 25.0 Anion Gap 15 BUN 39 H Creatinine 1.71 H Estim Creat Clear Calc 29.37 Est GFR (MDRD) Af Amer 40 L Est GFR (MDRD) Non-Af 33 L BUN/Creatinine Ratio 22.8 H Glucose 129 H Lactic Acid Calcium 9.0 Total Bilirubin Direct Bilirubin AST ALT Alkaline Phosphatase Troponin I High Sens < 3 L B-Natriuretic Peptide Total Protein Albumin Globulin 10/18/21 10/18/21 10/18/21 00:00 00:00 00:00 WBC RBC Hgb Hct MCV MCH MCHC RDW Std Deviation RDW Coeff of Elvira Plt Count MPV Immature Gran % (Auto) Neut % (Auto) Lymph % (Auto) Arch[place] % (Auto) Eos % (Auto) Baso % (Auto) Absolute Neuts (auto) Absolute Lymphs (auto) Nucleated RBC % Toxic Granulation Macrocytosis D-Dimer Quant (PE/DVT) Sodium Potassium Chloride Carbon Dioxide Anion Gap BUN Creatinine Estim Creat Clear Calc Est GFR (MDRD) Af Amer Est GFR (MDRD) Non-Af BUN/Creatinine Ratio Glucose Lactic Acid 4.2 H* Calcium Total Bilirubin 0.90 Direct Bilirubin 0.68 H AST 213 H ALT 88 H Alkaline Phosphatase 73 Troponin I High Sens B-Natriuretic Peptide 147.2 H Total Protein 6.2 L Albumin 1.9 L Globulin 4.3 H ABG Data ABG results: ABG 10/18/21 01:47 Specimen Type ART Sample Site R Radial pH 7.31 L Bicarbonate Actual 22.1 Total CO2 23 Base Excess -4 L O2 Saturation 95 O2 % 100 ABG pCO2 44.0 ABG pO2 81 Jas Test Negative Respiration Rate 12 O2 Delivery Device BiPAP Tidal Volume 450 POC PEEP 12 Clinical Comments avaps Radiography Diagnostic Testing: Clinical Impression(s) from Imaging Studies Chest X-Ray 10/17/21 00:45 IMPRESSION: Extensive bilateral multifocal pneumonia. Electronically Signed: Gela Cee MD at 1:06 EDT , Chest CTA 10/18/21 00:51 IMPRESSION: 1. No CTA demonstrated pulmonary embolism or arterial dissection. 2. Bilateral multifocal airspace disease consistent with pneumonia. Electronically Signed: Gela Cee MD at 1:56 EDT , EKG Initial EKG: Attestation: I personally reviewed and interpreted this EKG as follows: Interpretation: No Acute Injury Pattern and Sinus Tachycardia (116) Critical Care Time Critical Care Time: Yes Critical care time (excluding procedures): 30-74 minutes (38), Including time spent:, Discussing w/Patient &/or Family/Dining Room Server, Discussing w/Consultants, Arranging Admission or Transfer and Performing Direct Patient Care at Bedside Discharge Plan Triage Chief Complaint: General Illness ED Provider: Johnnie Martínez Dx/Rx/DC Orders Prescriptions: No Action bupropion HCl 100 mg tablet 100 mg PO QDAY Probiotic 3 billion cell capsule 3,000 mmu cells PO DAILY Rx Instructions: administer with a meal tramadol 50 mg tablet 50 mg PO Q6H PRN (Reason: pain) Qty: 90 2RF multivitamin 1 EACH tablet 1 ea PO DAILY cholecalciferol (vitamin D3) 5,000 UNIT tablet,disintegrating 5,000 unit PO DAILY biotin 10,000 MCG capsule 10,000 mcg PO DAILY (DME) BP monitor 0 .Route .MEDSUPPLY Qty: 1 0RF Rx Instructions: As directed carvedilol 12.5 mg tablet 12.5 mg PO BID Qty: 180 3RF Rx Instructions: must administer with a meal/food duloxetine 20 mg capsule,delayed release(DR/EC) 20 mg PO DAILY Qty: 90 3RF Rx Instructions: 60 mg duloxetine + 20 mg duloxetine= 80mg duloxetine 60 mg capsule,delayed release(DR/EC) 60 mg PO DAILY Qty: 90 3RF Rx Instructions: to take with duloxetine 20 mg to = 80 mg a day fluticasone propionate 50 mcg/actuation spray,suspension 1 spray INTRANASAL BID Qty: 16 12RF Rx Instructions: administer into each nostril gabapentin 300 mg capsule 300 mg PO QHS Qty: 90 3RF lisinopril 5 mg tablet 5 mg PO DAILY Qty: 90 2RF omeprazole 20 mg capsule,delayed release(DR/EC) 20 mg PO DAILY Qty: 90 3RF loratadine 10 mg capsule 10 mg PO DAILY Qty: 30 12RF oxybutynin chloride 10 mg tablet extended release 24hr 10 mg PO DAILY Qty: 90 3RF Primary Care Provider: Gloria Le NP Referrals: Gloria Le ROAD EQUIPMENT OPERATOR, ROAD EQUIPMENT OPERATOR-C [Primary Care Provider] - Disposition Disposition: Acute Care Hospital [facility]
[2021-10-18] MEDS: Ipratropium/Albuterol Sulfate 3 ML AMPUL.NEB INHALATION (00:14)
[2021-10-18 00:15] LABS: Absolute Lymphocyte Count 0.23 X10^3/uL (0.83-4.51); Basophil# 0.05 X10^3/uL; Basophil% 0.8 % (0-1); Hematocrit 38.4 % (37-47); Hemoglobin 12.7 g/dL (12.0-15.0); Lymphocyte # 0.23 X10^3/ul (0.83-4.51); Lymphocyte % 3.6 % (19-41); Mean Corp Hgb Conc 33.1 g/dL (32-36); Mean Corpuscular Hgb 33.1 pg (27.0-32.0); Mean Platelet Vol. 11.8 fl (6.2-12.0); Monocyte# 0.08 X10^3/uL; Monocyte% 1.2 % (0-10); NRBC Flagged by Analyzer 0.3 % (0-5); Neutrophil # 5.96 X10^3/uL (2.7-7.7); Neutrophil % 92.7 % (47-70); POSITIVE DIFFERENTIAL YES; POSITIVE MORPHOLOGY YES; Platelet Count 233 K/mm3 (150-450); RBC Distribution Width CV 13.1 % (11.6-14.6); RBC Distribution Width SD 48.2 fl (35.1-43.9); Red Blood Count 3.84 M/mm3 (4.2-5.4); White Blood Count 6.4 K/mm3 (4.4-11.0)
[2021-10-18 00:16] LABS: Differential Indicated SCAN CRITERIA MET
[2021-10-18 00:37] LABS: BNP,B-Type NATRIURETIC PEPTIDE 147.2 pg/mL (0-100)
[2021-10-18 00:39] LABS: Anion Gap 15 (5-15); BUN 39 mg/dL (7-18); BUN/Creat Ratio 22.8 RATIO (10-20); Chloride 86 mmol/L (98-107); Creatinine, Serum 1.71 mg/dL (0.55-1.02); EST Glomerular Filtration Rate 33 mL/min (>60); Est Glom Filt Rate - Afr Amer 40 mL/min (>60); Estimated Creatinine Clearance 29.37 ml/min; Glucose 129 mg/dL (74-106); Sodium Level 126 mmol/L (136-145); Troponin-I HS < 3 pg/mL (3.0-54.0)
[2021-10-18 00:43] LABS: Macrocytosis 1+
[2021-10-18 00:44] LABS: Lactic Acid 4.2 mmol/L (0.4-1.9)
[2021-10-18 00:47] LABS: Toxic Granulation 2+
[2021-10-18 00:48] LABS: D-Dimer Quantitative (DVT/PE) 3.61 FEU/ug/m (0.27-0.49)
--- NOTE | 2021-10-18 00:51 | CT_ITS ---
STUDY: CTA CHEST REASON FOR EXAM: Female, 51 years old patient with elevated D-Dimer, dyspnea, cough and fever for one day. RADIATION DOSAGE (If Supplied By Facility): CTDIvol = ( 13.63 ) mGy, DLP = ( 509.70 ) mGycm TECHNIQUE: The examination was performed with the intravenous administration of 75 mL of Isovue-370. Post-processing of the angiographic images was performed, with multiplanar reformation and 3D reconstruction. Individualized dose optimization techniques were used for this CT. COMPARISON: Chest radiograph dated 10/18/2021. FINDINGS: Cardiac monitoring leads are present. Normal enhancement of the main pulmonary artery and right and left pulmonary arteries. Normal enhancement of the bilateral peripheral pulmonary arteries. There is no demonstrated pulmonary embolism. Normal thoracic aorta and visualized great vessels. There is no demonstrated aortic dissection. Normal heart and pericardium. Normal mediastinum. The left hilar area is obscured by extensive airspace disease. Normal visualized trachea and bronchi. The lungs are well expanded. There is dense airspace consolidation present in bilateral lower lobes, right middle lobe, and left upper lobe consistent with multifocal pneumonia. There are patchy areas of groundglass attenuation within the lingula. Normal pleura. Normal chest wall structures. Normal osseous structures. There appears to be adrenal hyperplasia. CT/CTA Chest W/WO Contrast IMPRESSION: 1. No CTA demonstrated pulmonary embolism or arterial dissection. 2. Bilateral multifocal airspace disease consistent with pneumonia. Electronically Signed: Gela Cee MD at 1:56 EDT ,
--- NOTE | 2021-10-18 01:14 | PCM.HP.STD ---
HPI - General General Date of Admission: 10/18/21 Date of Service: 10/18/21 Chief Complaint: Shortness of breath HPI Narrative GISSELLE PULIDO, is a 51 F with a significant history of depression; anxiety disorder; hypertension and tachycardia who presents to the emergency department with progressively worsening shortness of breath that started a day before presentation. Associated with her symptoms is sharp continues chest pain. Further, patient has a productive cough with green sputum. She has rhinorrhea and ear pain. At home patient have a temperature of 100.5 Fahrenheit. He traveled recently to [place]. [facility] Medical History (Updated 10/18/21 @ 03:[address] Srinivasan Ricci MD) Anxiety disorder Depression Essential hypertension Fatigue GERD (gastroesophageal reflux disease) Hot flashes Malaise Pelvis tilted Preop cardiovascular exam Prolapsed bladder Restless leg Tachycardia Urge incontinence of urine Vitamin D deficiency Home Medications multivitamin 1 ea PO DAILY 06/14/15 [History Last Taken 09/22/19] cholecalciferol (vitamin D3) 125 mcg (5,000 unit) disintegrating tablet 5,000 unit PO DAILY 07/15/19 [History Last Taken 09/22/19] bupropion HCl 100 mg tablet 100 mg PO QDAY 09/22/19 [History Last Taken Unknown] biotin 10,000 mcg capsule 10,000 mcg PO DAILY 11/28/19 [History Last Taken Unknown] BP monitor #1 ea 12/03/19 [Rx Last Taken Unknown] lactobacillus combination no.4 3 billion cell capsule (Probiotic) 3,000 mmu cells PO DAILY 03/19/20 [History Last Taken Unknown] tramadol 50 mg tablet 50 mg PO Q6H PRN pain #90 tabs 09/16/20 [Rx Last Taken Unknown] carvedilol 12.5 mg tablet 12.5 mg PO BID #180 tabs 09/28/20 [Rx Last Taken Unknown] duloxetine 20 mg capsule,delayed release 20 mg PO DAILY #90 caps 09/28/20 [Rx Last Taken Unknown] duloxetine 60 mg capsule,delayed release 60 mg PO DAILY #90 caps 09/28/20 [Rx Last Taken Unknown] fluticasone propionate 50 mcg/actuation nasal spray,suspension 1 spray intranasal BID #16 grams 09/28/20 [Rx Last Taken Unknown] gabapentin 300 mg capsule 300 mg PO QHS #90 caps 09/28/20 [Rx Last Taken Unknown] lisinopril 5 mg tablet 5 mg PO DAILY #90 tabs 09/28/20 [Rx Last Taken Unknown] loratadine 10 mg capsule 10 mg PO DAILY #30 caps 09/28/20 [Rx Last Taken Unknown] omeprazole 20 mg capsule,delayed release 20 mg PO DAILY #90 caps 09/28/20 [Rx Last Taken Unknown] oxybutynin chloride 10 mg tablet,extended release 24 hr 10 mg PO DAILY #90 tabs 09/28/20 [Rx Last Taken Unknown] Allergy/AdvReac Type Severity Reaction Status Date / Time tramadol Allergy Severe Itching Verified 10/17/21 23:47 amoxicillin trihydrate AdvReac Nausea/Vom/ Verified 10/17/21 23:47 [From Augmentin] Diarrhea potassium clavulanate AdvReac Nausea/Vom/ Verified 10/17/21 23:47 [From Augmentin] Diarrhea Family History Mother Breast cancer Father Diabetes Heart disease Surgical History Feeling of incomplete bladder emptying H/O hysterectomy with oophorectomy H/O umbilical hernia repair YOKASTA AND BSO DUE TO ENDOMETRIOSIS IN 1999 Social History Smoking Status: Current every day smoker tobacco type: cigarettes alcohol intake: current alcohol intake frequency: a few times a month substance use type: does not use caffeine: Yes Type: coffee Number of servings: 2 ROS ROS Narrative Pertinent positives and pertinent negatives as noted in HPI. All other systems were reviewed and are negative Vital Signs Vital Signs Vital Signs: 10/17/21 23:44 10/17/21 23:54 10/18/21 00:20 Temperature 98.0 F 98.0 F Temperature Source Temporal Oral Pulse Rate 110 H 111 H 116 H Respiratory Rate 20 H 32 H 37 H Blood Pressure 103/65 103/65 Blood Pressure Mean 77 77 Pulse Ox 72 86 91 Oxygen Delivery Method Room Air Non-Rebreather Bi-pap Oxygen Flow Rate (L/min) 15 Fraction of Inspired Oxygen (FIO2) 100 Weight Weight: 77.111 kg Body Mass Index (BMI) 32.1 Physical Exam Narrative Physical exam: General: Patient on BiPAP any respiratory distress. Head: Normocephalic, atraumatic, no tenderness Eyes: Vision is grossly intact. EOMI ENT, no trauma, moist mucous membranes, no rhinorrhea Neck: Nontender, full range of motion, no spinal tenderness, deformities, step-off CVS: Tachycardia. S1-S2 present. No murmur, gallop or rub. Respiratory : Tachypnea on BiPAP; increased work of breathing. Diminished with mild rhonchi and wheezes. Crackles. Abdomen: Soft, nontender, nondistended, normal bowel sounds, no masses : Deferred Back: Nontender, no CVA tenderness Extremities: No cyanosis, clubbing or edema. Skin: Normal color, no trauma, abrasions Neuro: Alert, oriented, cranial nerves II through XII grossly intact. Psychiatry:Anxious. Results Lab / Micro Data Result Diagrams: 10/18/21 00:00 10/18/21 00:00 Labs: Laboratory Results - last 24 hr 10/18/21 00:00: WBC 6.4, RBC 3.84 L, Hgb 12.7, Hct 38.4, MCV 100.0 H, MCH 33.1 H, MCHC 33.1, RDW Std Deviation 48.2 H, RDW Coeff of Elvira 13.1, Plt Count 233, MPV 11.8, Immature Gran % (Auto) 1.700 H, Neut % (Auto) 92.7 H, Lymph % (Auto) 3.6 L, [place] % (Auto) 1.2, Eos % (Auto) 0.0, Baso % (Auto) 0.8, Absolute Neuts (auto) 6.0, Absolute Lymphs (auto) 0.23 L, Nucleated RBC % 0.3, Toxic Granulation 2+, Macrocytosis 1+ 10/18/21 00:00: D-Dimer Quant (PE/DVT) 3.61 H* 10/18/21 00:00: Sodium 126 L, Potassium 3.0 L, Chloride 86 L, Carbon Dioxide 25.0, Anion Gap 15, BUN 39 H, Creatinine 1.71 H, Estim Creat Clear Calc 29.37, Est GFR (MDRD) Af Amer 40 L, Est GFR (MDRD) Non-Af 33 L, BUN/Creatinine Ratio 22.8 H, Glucose 129 H, Calcium 9.0, Troponin I High Sens < 3 L 10/18/21 00:00: B-Natriuretic Peptide 147.2 H 10/18/21 00:00: Lactic Acid 4.2 H* Micro: Microbiology 10/18/21 00:06 Nasal Secretion SARS-CoV-2 & FLU Antigen (Rapid) - Final Radiology Impression Chest X-Ray 10/17/21 00:45 IMPRESSION: Extensive bilateral multifocal pneumonia. Electronically Signed: Gela Cee MD at 1:06 EDT Reading Location ID and State: [facility] / [place] , Service support , Assessment & Plan Assessment/Plan (1) Sepsis: (2) Legionella pneumonia: PLAN: Plan Septic shock secondary to Legionella pneumonia. The patient presented with septic shock due to (infection) with acute sepsis related organ dysfunction as evidenced by acute respiratory failure; and lactic acidosis of more than 4 (4.2 on presentation) SIRS criteria: Respiratory rate more than 20 (at highest of 37 at the time of presentation) Heart rate more than 90 (highest of 116 at the time of presentation) Multiple blood pressures with systolic of less than 90. Review of CBC showed white count of 6.4 but with bandemia of 1.7% and neutrophilia Chest x-ray was visualized and independently interpreted. Chest x-ray showed extensive multifocal pneumonia. I agree radiologist interpretation. D-dimer was elevated on presentation. Follow-up chest CTA with no pulmonary embolism or atrial dissection. Bilateral multifocal airspace disease consistent with pneumonia noted. Strep pneumoniae antigen and Legionella urine antigen ordered. Legionella urine antigen returned positive. Received ceftriaxone azithromycin the emergency department. Ceftriaxone and azithromycin continued Was receiving normal saline at 30 mL kilogram per bolus however patient got more dyspneic and developed rales. Normal saline bolus was stopped and patient was given Lasix 40 mg IV push x1. Levophed drip ordered. Trend CBC and CMP. Admitted to the intensive care unit. Case Repairer consult. Elevated liver biochemistries and hyperbilirubinemia AST on presentation 213; ALT on presentation 88; direct bilirubin of 0.68. Review of previous record shows baseline unremarkable liver enzymes. Likely secondary to shock. Trend CMP. Acute respiratory failure with oxygen saturation of 72% on room air initially requiring nonrebreather mask and then transition to BiPAP. Placed on BiPAP at emergency department and continued. Will admit to the intensive care unit. Case Repairer consult. ANASTASIA on CKD stage II Creatinine on presentation was 1.71 Review of record shows that creatinine on 01/25/2019 was 0.80. Community electronic records reviewed. No elevated creatinine found. BUN is 39. BUN over creatinine 22.8. Likely prerenal and septic shock. Received normal saline bolus at emergency department. With increased dyspnea requiring laxis will hold off further IV fluids at this time. Trend CMP. Avoid nephrotoxic's. Hyponatremia Sodium of 126. Chloride of 86. Trend CMP. Hypokalemia Potassium on presentation was 3.0. Received without supplementation emergency department. Trend BMP. DVT prophylaxis: Subcutaneous Lovenox ordered Charges/Coding Visit Charges Inpatient E&M: 47457 Init Hosp L3
[2021-10-18] MEDS: 0.9% Normal Saline 1,000 ML 1000 ML IV (01:20)
[2021-10-18] MEDS: 0.9% Normal Saline 1,000 ML 999 ML IV ×2 (01:32→02:34)
[2021-10-18 01:51] LABS: AST(SGOT) 213 U/L (15-37); Alanine Aminotransfer ALT/SGPT 88 U/L (13-56); Albumin, Serum 1.9 g/dL (3.2-5.0); Alkaline Phosphatase 73 U/L (45-117); Bilirubin, Direct 0.68 mg/dL (0.00-0.30); Globulin 4.3 g/dL (2.2-4.2); Protein, Total 6.2 g/dL (6.4-8.2)
[2021-10-18 01:55] LABS: Allen Test Negative; Base Excess -4 mmol/L (-2 to +2); Bicarbonate 22.1 mmol/L (22-26); Blood Gas Specimen Type ART; Comment avaps; FI02 100; O2 Delivery Device BiPAP; PEEP 12; PO2 81 mmHG (75-100); RR 12; SITE R Radial; SO2 95 % (95-99); Total Carbon Dioxide 23 mmol/L; Vt 450; pH 7.31 (7.35-7.45)
[2021-10-18] MEDS: Potassium Chloride 10mEq/100mL 10 MEQ/100 ML IV.SOLN. 100 MEQ IV BOLUS ×2 (02:22→03:20)
[2021-10-18] MEDS: Furosemide 40 MG/4 ML Vial IV (03:10)
--- NOTE | 2021-10-18 03:54 | NURSING ---
increased Levophed drip to 10mcg per verbal order Hospitalist.
[2021-10-18 04:10] LABS: Reflex Lactate? Y
[2021-10-18] MEDS: Etomidate 20 MG/10 ML Vial IV (04:34)
[2021-10-18] MEDS: Succinylcholine Chloride 200 MG/10 ML SYRINGE 100 MG IV ×2 (04:35→06:17)
--- NOTE | 2021-10-18 04:47 | RAD_ITS ---
STUDY: X-RAY - ABDOMEN/PELVIS REASON FOR EXAM: Female, 51 years old patient with orogastric tube placement. TECHNIQUE: Single AP view of the abdomen / pelvis. COMPARISON: Chest radiographs dated 10/18/2021. FINDINGS: There is left basilar airspace consolidation suggesting pneumonia. Is also right basilar airspace disease. Cardiac monitoring leads are present. There is an unremarkable bowel gas pattern. Orogastric tube tip is located in the left upper quadrant. There is no obvious organomegaly, mass, dilated bowel or pathologic calcifications. Normal soft tissue structures. Normal visualized osseous structures. RAD/Abdomen Single View (Portable) IMPRESSION: Orogastric tube tip is located in the left upper quadrant, probably in the stomach. Electronically Signed: Gela Cee MD at 6:00 EDT ,
--- NOTE | 2021-10-18 04:49 | SEPSISNOTE ---
Sepsis Note Physical Exam/Vitals Objective: Chest X-Ray 10/17/21 00:45 IMPRESSION: Extensive bilateral multifocal pneumonia. Electronically Signed: Gela Cee MD at 1:06 EDT , Chest CTA 10/18/21 00:51 IMPRESSION: 1. No CTA demonstrated pulmonary embolism or arterial dissection. 2. Bilateral multifocal airspace disease consistent with pneumonia. Electronically Signed: Gela Cee MD at 1:56 EDT , Temp Pulse Resp BP Pulse Ox O2 Del Method O2 Flow Rate 98.1 F 107 H 34 H 64/45 L 87 Bi-pap 100 10/18/21 03:01 10/18/21 04:38 10/18/21 04:10 10/18/21 04:38 10/18/21 04:10 10/18/21 04:10 10/18/21 04:01 FiO2 100 10/18/21 04:10 10/18/21 10/18/21 10/18/21 02:45 01:47 00:00 WBC RBC Hgb Hct MCV MCH MCHC RDW Std Deviation RDW Coeff of Elvira Plt Count MPV Immature Gran % (Auto) Neut % (Auto) Lymph % (Auto) [place] % (Auto) Eos % (Auto) Baso % (Auto) Absolute Neuts (auto) Absolute Lymphs (auto) Nucleated RBC % Toxic Granulation Macrocytosis D-Dimer Quant (PE/DVT) Specimen Type ART Sample Site R Radial pH 7.31 L Bicarbonate Actual 22.1 Total CO2 23 Base Excess -4 L O2 Saturation 95 O2 % 100 ABG pCO2 44.0 ABG pO2 81 Jas Test Negative Respiration Rate 12 O2 Delivery Device BiPAP Tidal Volume 450 POC PEEP 12 Clinical Comments avaps Sodium Potassium Chloride Carbon Dioxide Anion Gap BUN Creatinine Estim Creat Clear Calc Est GFR (MDRD) Af Amer Est GFR (MDRD) Non-Af BUN/Creatinine Ratio Glucose Lactic Acid Calcium Total Bilirubin 0.90 Direct Bilirubin 0.68 H AST 213 H ALT 88 H Alkaline Phosphatase 73 Troponin I High Sens B-Natriuretic Peptide Total Protein 6.2 L Albumin 1.9 L Globulin 4.3 H COVID-19 ([facility]) Pending 10/18/21 10/18/21 10/18/21 00:00 00:00 00:00 WBC RBC Hgb Hct MCV MCH MCHC RDW Std Deviation RDW Coeff of Elvira Plt Count MPV Immature Gran % (Auto) Neut % (Auto) Lymph % (Auto) [place] % (Auto) Eos % (Auto) Baso % (Auto) Absolute Neuts (auto) Absolute Lymphs (auto) Nucleated RBC % Toxic Granulation Macrocytosis D-Dimer Quant (PE/DVT) Specimen Type Sample Site pH Bicarbonate Actual Total CO2 Base Excess O2 Saturation O2 % ABG pCO2 ABG pO2 Jas Test Respiration Rate O2 Delivery Device Tidal Volume POC PEEP Clinical Comments Sodium 126 L Potassium 3.0 L Chloride 86 L Carbon Dioxide 25.0 Anion Gap 15 BUN 39 H Creatinine 1.71 H Estim Creat Clear Calc 29.37 Est GFR (MDRD) Af Amer 40 L Est GFR (MDRD) Non-Af 33 L BUN/Creatinine Ratio 22.8 H Glucose 129 H Lactic Acid 4.2 H* Calcium 9.0 Total Bilirubin Direct Bilirubin AST ALT Alkaline Phosphatase Troponin I High Sens < 3 L B-Natriuretic Peptide 147.2 H Total Protein Albumin Globulin COVID-19 ([facility]) 10/18/21 10/18/21 00:00 00:00 WBC 6.4 RBC 3.84 L Hgb 12.7 Hct 38.4 MCV 100.0 H MCH 33.1 H MCHC 33.1 RDW Std Deviation 48.2 H RDW Coeff of Elvira 13.1 Plt Count 233 MPV 11.8 Immature Gran % (Auto) 1.700 H Neut % (Auto) 92.7 H Lymph % (Auto) 3.6 L [place] % (Auto) 1.2 Eos % (Auto) 0.0 Baso % (Auto) 0.8 Absolute Neuts (auto) 6.0 Absolute Lymphs (auto) 0.23 L Nucleated RBC % 0.3 Toxic Granulation 2+ Macrocytosis 1+ D-Dimer Quant (PE/DVT) 3.61 H* Specimen Type Sample Site pH Bicarbonate Actual Total CO2 Base Excess O2 Saturation O2 % ABG pCO2 ABG pO2 Jas Test Respiration Rate O2 Delivery Device Tidal Volume POC PEEP Clinical Comments Sodium Potassium Chloride Carbon Dioxide Anion Gap BUN Creatinine Estim Creat Clear Calc Est GFR (MDRD) Af Amer Est GFR (MDRD) Non-Af BUN/Creatinine Ratio Glucose Lactic Acid Calcium Total Bilirubin Direct Bilirubin AST ALT Alkaline Phosphatase Troponin I High Sens B-Natriuretic Peptide Total Protein Albumin Globulin COVID-19 ([facility]) Attestation Sepsis Attestation: Sepsis re-evaluation was performed
--- NOTE | 2021-10-18 04:49 | PCM.PN.BLA ---
Progress Note Central Venous Catheter Indication: Need of vasopressor secondary to hypotension Consent was obtained from: Patient A time-out was completed verifying correct patient, procedure, site, positioning, and special equipment if applicable. The patient was placed in a dependent position appropriate for central line placement based on the vein to be cannulated. The patient's right IJ was prepped and draped in a sterile fashion. A triple-lumen catheter was introduced into the right IJ using the Seldinger technique and under ultrasound guidance. The catheter was threaded smoothly over the guidewire and appropriate blood return was obtained. Each lumen of the catheter was evacuated of air and flushed with sterile saline. The catheter was then sutured in place to the skin and a sterile dressing applied. Chest x-ray to confirm appropriate positioning is pending. ULTRASOUND GUIDANCE STATEMENT (Vascular Access): I performed ultrasound image acquisition and interpretation for needle placement during the procedure. The vessel was identified and found to be free of thrombosis by compression technique. A safe point of entry was marked at the skin in an angle for axis was determined. The needle was guided by obtaining free-flowing fluid and by real-time visualization. Procedures Hospitalists Procedures: [id number] Insert Non-tunnel CV Cath
--- NOTE | 2021-10-18 04:50 | PCM.PN.BLA ---
Progress Note Intubation Indication: Acute respiratory failure Oral consent was obtained from patient and . The patient was placed in the appropriate sniffing position. Preoxygenated sedation via a BiPAP was provided for a minimum of 3 minutes. The patient had continuous cardiac as well as pulse oximetry monitoring during the procedure. Procedure sedation was provided by the administration of etomidate and succinylcholine. [place] scope direct laryngoscopy was then performed using a number 4 blade, which revealed a grade 3 view. A 7.5 mm endotracheal tube was visualized advancing between the cords to the level of 24 cm at the lip. The stylette was then removed and discarded. Tube placement was confirmed by fogging in the tube along with equal and bilateral breath sounds. Colorimetric change was visualized on the CO2 meter. The cuff was then inflated and the tube secured using a commercially available device. A good pulse oximetry waveform was seen on the monitor throughout the procedure. A portable chest x-ray has been ordered to confirm appropriate placement. The patient tolerated the procedure well. Procedures Hospitalists Procedures: [id number] Insert Emergency Airway
--- NOTE | 2021-10-18 05:00 | RAD_ITS ---
STUDY: X-RAY CHEST REASON FOR EXAM: Female, 51 years old patient is status post intubation. TECHNIQUE: Single AP portable view of the chest. COMPARISON: Chest radiograph dated October 18 2021 time stamped 12:53 AM. FINDINGS: The endotracheal tube is located approximately 1.2 cm proximal to the jose alejandro. This probably should be repositioned. The tip of the orogastric tube is located in the left upper quadrant. Cardiac monitoring leads are present. The lungs are hyperexpanded. There are bilateral heterogeneous air space consolidations throughout both lungs. There is no demonstrated pleural abnormality. Normal size heart. Normal mediastinum and adrianna. Normal visualized pulmonary arteries. Normal visualized aortic arch and descending thoracic aorta. Normal visualized thoracic spine. Normal visualized ribs, clavicles, and shoulders. There is no demonstrated abnormality of the visualized soft tissue structures of the upper abdomen. RAD/Chest 1 View (Portable) IMPRESSION: 1. Tip of endotracheal tube is less than 2 cm proximal to the jose alejandro. This probably should be repositioned. 2. Unchanged appearance of bilateral multifocal pneumonia. Electronically Signed: Gela Cee MD at 6:05 EDT ,
[2021-10-18] MEDS: Propofol 10MG/Ml 1,000 MG/100 ML Bottle 4.6 MG CONT INF (05:02)
[2021-10-18 05:36] LABS: Allen Test Positive; Base Excess -7 mmol/L (-2 to +2); Blood Gas Specimen Type ART; FI02 100; Mode AC; O2 Delivery Device ET Tube; PEEP 14; PO2 61 mmHG (75-100); RR 14; SO2 85 % (95-99); Total Carbon Dioxide 23 mmol/L; Vt 480; pCO2 51.5 mmHg (35-45); pH 7.22 (7.35-7.45)
--- NOTE | 2021-10-18 06:20 | RAD_ITS ---
STUDY: X-RAY CHEST REASON FOR EXAM: Female, 51 years old. ET TUBE placement TECHNIQUE: Portable, supine, AP chest radiograph COMPARISON: 1 hour earlier RAD/Chest 1 View (Portable) IMPRESSION: Endotracheal tube terminates 3.5 cm above the jose alejandro. Similar diffuse bilateral pulmonary consolidations with relative right lower lung sparing. Right IJ central catheter and enteric tube remain Electronically Signed: Skinny Morris MD at 8:04 EDT ,
--- NOTE | 2021-10-18 06:43 | EX.PCM.CONCC ---
Assessment & Plan Assessment/Plan (1) Acute hypoxemic respiratory failure: PLAN: Plan RECOMMENDATIONS: 1. Continue assist-control mode mechanical ventilation. Wean FiO2/PEEP for saturations greater than 90%. 2. Obtain arterial blood gas in 1 hour. 3. Continue empiric broad-spectrum antimicrobials. Obtain infectious diseases consultation. 4. Repeat chemistry profile and magnesium. 5. Continue appropriate ICU prophylaxis. 6. If refractory hypoxemia persists, consider a trial of prone positioning. IMPRESSIONS: 1. Acute hypoxemic respiratory failure The patient presented with shortness of breath and hypoxemia in the setting of multilobar pneumonia resulting in ARDS, ultimately requiring invasive mechanical ventilatory support secondary to presumptive Legionella pneumonia. The patient will be continued on assist control mode of mechanical ventilation. A lung protective ventilatory strategy will be undertaken. Wean FiO2 and PEEP as tolerated for saturations greater than 90%. Obtain repeat arterial blood gas in 1 hour. In light of pending cultures, will continue broad-spectrum antimicrobials for now. Infectious diseases consultation will be obtained. Continue appropriate ICU prophylaxis. In light of the patient's tenuous respiratory status, will hold off on initiation of tube feeds today. 2. Septic shock The patient presented with sepsis due to suspected Legionella pneumonia with acute sepsis related organ dysfunction as evidenced by acute hypoxemic respiratory failure requiring invasive mechanical ventilatory support and acute kidney injury. The patient developed fluid refractory hypotension, necessitating vasopressor support to maintain a mean arterial pressure at or above 65 mmHg. As noted above, we will continue empiric antimicrobials, pending finalized culture results. However, the patient's urinary Legionella antigen was positive. Therefore, will obtain infectious diseases consultation as well. 3. Acute kidney injury/hyponatremia/hypokalemia Likely prerenal in etiology/ischemic ATN in the setting of #2. The patient will be continued on vasopressor support to maintain a mean arterial pressure at or above 65 mmHg. In light of the patient's tenuous respiratory status, I would avoid continuous IV fluid infusion at this time. Will provide electrolyte repletion as needed. 4. Hypertension/depression/neuropathy/GERD Complicates care, management, recovery and prognosis. Continue to hold home antihypertensives for now. TIME: 42 minutes of critical care time, independent of procedures, was spent addressing the patient's acute hypoxemic respiratory failure, septic shock, acute kidney injury, review of all data and collaboration with the care team. HPI Consult Data Date of Consult: 10/18/21 HPI Narrative Reason for Consultation: Acute hypoxemic respiratory failure HPI Narrative: The patient is a 51-year-old female, with a history as outlined below, who presented to the emergency department on October 18 with subjective fevers, progressive shortness of breath and cough. Although the patient's recently had COVID, the patient apparently tested negative at home and again tested negative upon presentation to the emergency department. The remainder of the history pertinent to her hospitalization was obtained primarily via chart review, as the patient is currently intubated and mechanically ventilated. On presentation to the emergency department, the patient was noted to be afebrile with tenuous hemodynamics. She was notably tachycardic and tachypneic. The patient was hypoxemic, saturating 72% on room air at presentation. Initial laboratory evaluation revealed no evidence of a leukocytosis. D-dimer was elevated at 3.6. Chemistry profile was notable for a sodium of 126, potassium of 3.0, chloride of 86 and creatinine of 1.7. Lactate was elevated at 4.2. AST and ALT were increased at 213 and 88, respectively. BNP was elevated at 147. COVID PCR was negative. CTA chest showed no evidence for pulmonary embolism but did demonstrate significant multilobar consolidation. Although the patient was initially placed on BiPAP therapy, she ultimately required intubation. During her emergency department stay, supplemental IV fluids were initially administered. However, over concerns for fluid overload, the fluids were discontinued and IV Lasix was administered. As a consequence, the patient became hemodynamically unstable and had to be started on vasopressors to maintain stability. A central venous catheter was placed. Patient was placed on antimicrobials and admitted to the medical intensive care unit for further management. [facility] Medical History (Updated 10/18/21 @ 09:[address] Jarad Yanes MD) Anxiety disorder Depression Essential hypertension Fatigue GERD (gastroesophageal reflux disease) Hot flashes Malaise Pelvis tilted Preop cardiovascular exam Prolapsed bladder Restless leg Tachycardia Urge incontinence of urine Vitamin D deficiency Home Medications multivitamin 1 ea PO DAILY 06/14/15 [History Last Taken 09/22/19] cholecalciferol (vitamin D3) 125 mcg (5,000 unit) disintegrating tablet 5,000 unit PO DAILY 07/15/19 [History Last Taken 09/22/19] bupropion HCl 100 mg tablet 100 mg PO QDAY 09/22/19 [History Last Taken Unknown] biotin 10,000 mcg capsule 10,000 mcg PO DAILY 11/28/19 [History Last Taken Unknown] BP monitor #1 ea 12/03/19 [Rx Last Taken Unknown] lactobacillus combination no.4 3 billion cell capsule (Probiotic) 3,000 mmu cells PO DAILY 03/19/20 [History Last Taken Unknown] tramadol 50 mg tablet 50 mg PO Q6H PRN pain #90 tabs 09/16/20 [Rx Last Taken Unknown] carvedilol 12.5 mg tablet 12.5 mg PO BID #180 tabs 09/28/20 [Rx Last Taken Unknown] duloxetine 20 mg capsule,delayed release 20 mg PO DAILY #90 caps 09/28/20 [Rx Last Taken Unknown] duloxetine 60 mg capsule,delayed release 60 mg PO DAILY #90 caps 09/28/20 [Rx Last Taken Unknown] fluticasone propionate 50 mcg/actuation nasal spray,suspension 1 spray intranasal BID #16 grams 09/28/20 [Rx Last Taken Unknown] gabapentin 300 mg capsule 300 mg PO QHS #90 caps 09/28/20 [Rx Last Taken Unknown] lisinopril 5 mg tablet 5 mg PO DAILY #90 tabs 09/28/20 [Rx Last Taken Unknown] loratadine 10 mg capsule 10 mg PO DAILY #30 caps 09/28/20 [Rx Last Taken Unknown] omeprazole 20 mg capsule,delayed release 20 mg PO DAILY #90 caps 09/28/20 [Rx Last Taken Unknown] oxybutynin chloride 10 mg tablet,extended release 24 hr 10 mg PO DAILY #90 tabs 09/28/20 [Rx Last Taken Unknown] Allergy/AdvReac Type Severity Reaction Status Date / Time tramadol Allergy Severe Itching Verified 10/17/21 23:47 amoxicillin trihydrate AdvReac Nausea/Vom/ Verified 10/17/21 23:47 [From Augmentin] Diarrhea potassium clavulanate AdvReac Nausea/Vom/ Verified 10/17/21 23:47 [From Augmentin] Diarrhea Family History Mother Breast cancer Father Diabetes Heart disease Surgical History Feeling of incomplete bladder emptying H/O hysterectomy with oophorectomy H/O umbilical hernia repair YOKASTA AND BSO DUE TO ENDOMETRIOSIS IN 1999 Social History Smoking Status: Current every day smoker tobacco type: cigarettes alcohol intake: current alcohol intake frequency: a few times a month substance use type: does not use caffeine: Yes Type: coffee Number of servings: 2 ROS Review of Systems ROS Unobtainable: due to endotracheal tube and due to mental status Physical Exam Const General Appearance: intubated and patient mechanically ventilated HEENT normocephalic and head/scalp atraumatic Mouth: endotracheal tube in place and OG tube in place Eyes PERRL and conjunctivae normal Neck supple General: trachea midline and CVC in place Chest inspection of chest normal Resp Effort and Inspection: tachypneic Auscultation: Negative for rales, rhonchi or wheezes Cardio S1 normal heart sound and S2 normal heart sound Rate: tachycardic GI normal to inspection, nondistended, normoactive bowel sounds Extremity no clubbing, cyanosis or edema Skin no rashes or lesions noted Neuro Sensorium / Orientation: sedated on vent Lab / Micro Data Result Diagrams: 10/18/21 00:00 10/18/21 07:50 Labs: Laboratory Results - last 24 hr 10/18/21 00:00: WBC 6.4, RBC 3.84 L, Hgb 12.7, Hct 38.4, MCV 100.0 H, MCH 33.1 H, MCHC 33.1, RDW Std Deviation 48.2 H, RDW Coeff of Elvira 13.1, Plt Count 233, MPV 11.8, Immature Gran % (Auto) 1.700 H, Neut % (Auto) 92.7 H, Lymph % (Auto) 3.6 L, [place] % (Auto) 1.2, Eos % (Auto) 0.0, Baso % (Auto) 0.8, Absolute Neuts (auto) 6.0, Absolute Lymphs (auto) 0.23 L, Nucleated RBC % 0.3, Toxic Granulation 2+, Macrocytosis 1+ 10/18/21 00:00: D-Dimer Quant (PE/DVT) 3.61 H* 10/18/21 00:00: Sodium 126 L, Potassium 3.0 L, Chloride 86 L, Carbon Dioxide 25.0, Anion Gap 15, BUN 39 H, Creatinine 1.71 H, Estim Creat Clear Calc 29.37, Est GFR (MDRD) Af Amer 40 L, Est GFR (MDRD) Non-Af 33 L, BUN/Creatinine Ratio 22.8 H, Glucose 129 H, Calcium 9.0, Troponin I High Sens < 3 L 10/18/21 00:00: B-Natriuretic Peptide 147.2 H 10/18/21 00:00: Lactic Acid 4.2 H* 10/18/21 00:00: Total Bilirubin 0.90, Direct Bilirubin 0.68 H, AST 213 H, ALT 88 H, Alkaline Phosphatase 73, Total Protein 6.2 L, Albumin 1.9 L, Globulin 4.3 H 10/18/21 02:45: COVID-19 ([facility]) Not Detected Micro: Microbiology 10/18/21 01:55 Urine Catheter - Catheter Legionella Antigen - Final Legionella Antigen 10/18/21 01:55 Urine Catheter - [place] Streptococcus pneumoniae Antigen (M - Final 10/18/21 00:06 Nasal Secretion SARS-CoV-2 & FLU Antigen (Rapid) - Final ABG Data ABG results: ABG 10/18/21 10/18/21 01:47 05:31 Specimen Type ART ART Sample Site R Radial pH 7.31 L 7.22 L Bicarbonate Actual 22.1 21.0 L Total CO2 23 23 Base Excess -4 L -7 L O2 Saturation 95 85 L O2 % 100 100 ABG pCO2 44.0 51.5 H ABG pO2 81 61 L Jas Test Negative Positive Respiration Rate 12 14 O2 Delivery Device BiPAP ET Tube Vent Mode AC Tidal Volume 450 480 POC PEEP 12 14 Clinical Comments avaps Radiology Impression Chest X-Ray 10/17/21 00:45 IMPRESSION: Extensive bilateral multifocal pneumonia. Electronically Signed: Gela Cee MD at 1:06 EDT , Chest CTA 10/18/21 00:51 IMPRESSION: 1. No CTA demonstrated pulmonary embolism or arterial dissection. 2. Bilateral multifocal airspace disease consistent with pneumonia. Electronically Signed: Gela Cee MD at 1:56 EDT , KUB X-Ray 10/18/21 04:47 IMPRESSION: Orogastric tube tip is located in the left upper quadrant, probably in the stomach. Electronically Signed: Gela Cee MD at 6:00 EDT Reading Location ID and State: [address] [place] [address] , Service support , Chest X-Ray 10/18/21 05:00 IMPRESSION: 1. Tip of endotracheal tube is less than 2 cm proximal to the jose alejandro. This probably should be repositioned. 2. Unchanged appearance of bilateral multifocal pneumonia. Electronically Signed: Gela Cee MD at 6:05 EDT Reading Location ID and State: [address] [place] [address] , Service support , Charges/Coding Procedures Hospitalists Procedures: [id number] [facility]
--- NOTE | 2021-10-18 06:53 | NURSING ---
icu 3 pneumonia, severe sepsis, hypoxia, hypokalemia agyepong
[2021-10-18 07:21] LABS: Lactic Acid 3.3 mmol/L (0.4-1.9)
--- NOTE | 2021-10-18 07:31 | NURSING ---
0610: called to pt's bedside to assist in stabilizing pt;pt presented to ICU sitting up on ER stretcher attempting to pull ETT out. RT Oscar bagging and protecting airway and RN Gela Self driving bed. Pt pulled over into ICU bed 3, propofol increased to 30mcg from 10mcg to help sedate pt. Levophed infusing at 20mcg, increased to 25mcg. Vasopressin running at 0.04units/hr. 0615:pt cont to be asynchronous w/vent, PEAK pressures in the 50s, RR 30s, p.ox low 70% gave verbal order for 100mg succinylcholine. Vent set at RR18,TV 480, 100%fiO2, PEEP 16. Pt slowing down RR, body flaccid now. P.ox only 84% RT moved ETT back to 22cm at the teeth per verbal order from . 0620: at bedside and adjusted PEEP to 18 and vent rate to 20. Verbal orders given to maintain RASS -3 today. Repeat ABG in 1.5hrs. 0650:Pt's spouse,Santo, brought in to room, updates given regarding procedures and expectations for the next few days. Santo denies questions at this time, takes all of 's personal belongings home with him. He will call unit for updates later after some rest.
[2021-10-18 07:40] LABS: Allen Test Positive; Base Excess -8 mmol/L (-2 to +2); Bicarbonate 19.2 mmol/L (22-26); Blood Gas Specimen Type ART; FI02 100; Mode AC; O2 Delivery Device Adult Vent; PEEP 18; PO2 56 mmHG (75-100); RR 20; SITE R Radial; SO2 84 % (95-99); Total Carbon Dioxide 21 mmol/L; Vt 480; pCO2 42.5 mmHg (35-45); pH 7.26 (7.35-7.45)
[2021-10-18 08:18] LABS: Anion Gap 15 (5-15); BUN 41 mg/dL (7-18); BUN/Creat Ratio 25.3 RATIO (10-20); Calcium,Total 7.8 mg/dL (8.5-10.1); Chloride 94 mmol/L (98-107); Creatinine, Serum 1.62 mg/dL (0.55-1.02); EST Glomerular Filtration Rate 36 mL/min (>60); Est Glom Filt Rate - Afr Amer 43 mL/min (>60); Estimated Creatinine Clearance 38.46 ml/min; Glucose 137 mg/dL (74-106); Magnesium 1.6 mg/dL (1.6-2.6); Potassium 3.3 mmol/L (3.5-5.1); Sodium Level 129 mmol/L (136-145)
[2021-10-18] MEDS: Heparin Injection (Vial) 5,000 UNIT/ML VIAL 5000 UNIT SC ×3 (08:39→21:14)
[2021-10-18] MEDS: Famotidine 20 MG Tablet GT (08:41)
--- NOTE | 2021-10-18 08:42 | PCM.RX.CS ---
Consult Pharmacy has been consulted to manage selected antiobiotic: Vancomycin Type of Consult: New start Labs: Sodium 129 mmol/L (136-145) L 10/18/21 07:50 Potassium 3.3 mmol/L (3.5-5.1) L 10/18/21 07:50 Chloride 94 mmol/L (98-107) L 10/18/21 07:50 Carbon Dioxide 20.0 mmol/L (21.0-32.0) L 10/18/21 07:50 Anion Gap 15 (5-15) 10/18/21 07:50 BUN 41 mg/dL (7-18) H 10/18/21 07:50 Creatinine 1.62 mg/dL (0.55-1.02) H 10/18/21 07:50 Est GFR (MDRD) Af Amer 43 mL/min (>60) L 10/18/21 07:50 Est GFR (MDRD) Non-Af 36 mL/min (>60) L 10/18/21 07:50 BUN/Creatinine Ratio 25.3 RATIO (10-20) H 10/18/21 07:50 Glucose 137 mg/dL (74-106) H 10/18/21 07:50 Microbiology: Microbiology 10/18/21 01:55 Urine Catheter - Catheter Legionella Antigen - Final Legionella Antigen 10/18/21 01:55 Urine Catheter - [place] Streptococcus pneumoniae Antigen (M - Final 10/18/21 00:06 Nasal Secretion SARS-CoV-2 & FLU Antigen (Rapid) - Final Weight used for dosin.1 kg Estimated Creatinine Clearance: 42.8ML/MIN Goal Trough: 15-20 mcg/mL Pharmacy Plan for Drug Dosing: Give intitial loading dose of vanc 2000mg IV x1, then continue with 500mg IV q12h per [facility] dosing protocol. Will check a trough level before the 4th total dose tomorrow night. The patient's CrCl of 42.8ml/min was calculated using an adjusted body weight of 66kg. Pharmacy Service will continue to monitor and adjust dosing as required. Follow-Up Labs: Trough Vancomycin Labs to be done on [date and time ordered]: 10/19/21 19:30
--- NOTE | 2021-10-18 08:55 | NURSING ---
Patient was being monitored after Dr Farooq ordered changes to vent settings. O2 sats were gradually improving and were up to 88% when they suddenly dropped to the low 70's. ETT was suctioned for scant creamy secretions, troubleshooting revealed no problems with vent circuit, patient was not coughing and was compliant with ventilation. Dr Farooq and RT both arrived on unit soon after for rounds and they were informed of O2 sats. Dr Farooq ordered that the patient be placed in the prone position. Patient was proned with assistance of RT, a QC TECH and 4 RNS. Patient tolerated reposioning without complications, O2 sats initially improved to 90% immediatly after proning but then returned to mid 70's. Will continue to monitor, patient may just need time to re-recruit per Dr Farooq.
[2021-10-18 09:27] LABS: CPK Total, Creatine Kinase 48 U/L (26-192); Triglycerides 507 mg/dL
--- NOTE | 2021-10-18 09:54 | CON.PCM.ID_ITS ---
Assessment & Plan Assessment/Plan (1) Legionella pneumonia: PLAN: On 2 pressors. Now proned, sats currently in high 70s on 100%fiO2. On vanc/zosyn. Will order azithro to continue. Covid neg here. Bcx and sputum cx pending. Will follow, thank you, d/w respiratory (2) Acute hypoxemic respiratory failure: (3) Septic shock: HPI Consult Data Date of Consult: 10/18/21 HPI Narrative HPI Narrative: GISSELLE PULIDO, is a 51 F who presented last night with one day of dyspnea, fever, cough with sputum. Recent travel to [place]. Came to ED, given azithro/ceftriaxone, then admitted to icu on vent, pressors, vanc/zosyn. Now prone. ROS unobtainable due to intubation. [facility] Medical History (Updated 10/18/21 @ 09:[address] Jarad Yanes MD) Anxiety disorder Depression Essential hypertension Fatigue GERD (gastroesophageal reflux disease) Hot flashes Malaise Pelvis tilted Preop cardiovascular exam Prolapsed bladder Restless leg Tachycardia Urge incontinence of urine Vitamin D deficiency Home Medications multivitamin 1 ea PO DAILY 06/14/15 [History Last Taken 09/22/19] cholecalciferol (vitamin D3) 125 mcg (5,000 unit) disintegrating tablet 5,000 unit PO DAILY 07/15/19 [History Last Taken 09/22/19] bupropion HCl 100 mg tablet 100 mg PO QDAY 09/22/19 [History Last Taken Unknown] biotin 10,000 mcg capsule 10,000 mcg PO DAILY 11/28/19 [History Last Taken Unknown] BP monitor #1 ea 12/03/19 [Rx Last Taken Unknown] lactobacillus combination no.4 3 billion cell capsule (Probiotic) 3,000 mmu cells PO DAILY 03/19/20 [History Last Taken Unknown] tramadol 50 mg tablet 50 mg PO Q6H PRN pain #90 tabs 09/16/20 [Rx Last Taken Unknown] carvedilol 12.5 mg tablet 12.5 mg PO BID #180 tabs 09/28/20 [Rx Last Taken Unknown] duloxetine 20 mg capsule,delayed release 20 mg PO DAILY #90 caps 09/28/20 [Rx Last Taken Unknown] duloxetine 60 mg capsule,delayed release 60 mg PO DAILY #90 caps 08/17/21 [Rx Last Taken Unknown] fluticasone propionate 50 mcg/actuation nasal spray,suspension 1 spray intranasal BID #16 grams 09/28/20 [Rx Last Taken Unknown] gabapentin 300 mg capsule 300 mg PO QHS #90 caps 09/28/20 [Rx Last Taken Unknown] lisinopril 5 mg tablet 5 mg PO DAILY #90 tabs 09/28/20 [Rx Last Taken Unknown] loratadine 10 mg capsule 10 mg PO DAILY #30 caps 09/28/20 [Rx Last Taken Unkn own] omeprazole 20 mg capsule,delayed release 20 mg PO DAILY #90 caps 09/28/20 [Rx Last Taken Unknown] oxybutynin chloride 10 mg tablet,extended release 24 hr 10 mg PO DAILY #90 tabs 09/28/20 [Rx Last Taken Unknown] Allergy/AdvReac Type Severity Reaction Status Date / Time tramadol Allergy Severe Itching Verified 10/17/21 23:47 amoxicillin trihydrate AdvReac Nausea/Vom/ Verified 10/17/21 23:47 [From Augmentin] Diarrhea potassium clavulanate AdvReac Nausea/Vom/ Verified 10/17/21 23:47 [From Augmentin] Diarrhea Family History Mother Breast cancer Father Diabetes Heart disease Surgical History Feeling of incomplete bladder emptying H/O hysterectomy with oophorectomy H/O umbilical hernia repair YOKASTA AND BSO DUE TO ENDOMETRIOSIS IN 1999 Social History Smoking Status: Current every day smoker tobacco type: cigarettes alcohol intake: current alcohol intake frequency: a few times a month substance use type: does not use caffeine: Yes Type: coffee Number of servings: 2 Physical Exam Const Constitutional Narrative: ill appearing, intubated, sedated HEENT normocephalic and head/scalp atraumatic Neck supple Resp Effort and Inspection: mechanically ventilated Auscultation: rhonchi Cardio Rate: tachycardic GI soft to palpation, non-tender and non-distended Extremity General Extremity: Negative for edema Skin no rashes or lesions noted Neuro Neuro Narrative: unable to assess cranial nerves due to prone status Lab / Micro Data Attestation: I reviewed the patient's lab results. Result Diagrams: 10/18/21 00:00 10/18/21 07:50 Labs: Laboratory Results - last 24 hr 10/18/21 00:00: WBC 6.4, RBC 3.84 L, Hgb 12.7, Hct 38.4, MCV 100.0 H, MCH 33.1 H , MCHC 33.1, RDW Std Deviation 48.2 H, RDW Coeff of Elvira 13.1, Plt Count 233, MPV 11.8, Immature Gran % (Auto) 1.700 H, Neut % (Auto) 92.7 H, Lymph % (Auto) 3.6 L , Pender % (Auto) 1.2, Eos % (Auto) 0.0, Baso % (Auto) 0.8, Absolute Neuts (auto) 6.0, Absolute Lymphs (auto) 0.23 L, Nucleated RBC % 0.3, Toxic Granulation 2+, Macrocytosis 1+ 10/18/21 00:00: D-Dimer Quant (PE/DVT) 3.61 H* 10/18/21 00:00: Sodium 126 L, Potassium 3.0 L, Chloride 86 L, Carbon Dioxide 25.0, Anion Gap 15, BUN 39 H, Creatinine 1.71 H, Estim Creat Clear Calc 29.37, Est GFR (MDRD) Af Amer 40 L, Est GFR (MDRD) Non-Af 33 L, BUN/Creatinine Ratio 22.8 H, Glucose 129 H, Calcium 9.0, Troponin I High Sens < 3 L 10/18/21 00:00: B-Natriuretic Peptide 147.2 H 10/18/21 00:00: Lactic Acid 4.2 H* 10/18/21 00:00: Total Bilirubin 0.90, Direct Bilirubin 0.68 H, AST 213 H, ALT 88 H, Alkaline Phosphatase 73, Total Protein 6.2 L, Albumin 1.9 L, Globulin 4.3 H 10/18/21 02:45: COVID-19 ([facility]) Not Detected 10/18/21 06:20: Lactic Acid 3.3 H* 10/18/21 07:50: Sodium 129 L, Potassium 3.3 L, Chloride 94 L, Carbon Dioxide 20.0 L, Anion Gap 15, BUN 41 H, Creatinine 1.62 H, Estim Creat Clear Calc 38.46, Est GFR (MDRD) Af Amer 43 L, Est GFR (MDRD) Non-Af 36 L, BUN/Creatinine Ratio 25.3 H, Glucose 137 H, Calcium 7.8 L, Magnesium 1.6 10/18/21 07:50: Total Creatine Kinase 48, Triglycerides 507 H Micro: Microbiology 10/18/21 04:55 Sputum, Induced/Lukens Gram Stain - Final 10/18/21 01:55 Urine Catheter - Catheter Legionella Antigen - Final Legionella Antigen 10/18/21 01:55 Urine Catheter - Belcher Streptococcus pneumoniae Antigen (M - Final 10/18/21 00:06 Nasal Secretion SARS-CoV-2 & FLU Antigen (Rapid) - Final ABG Data ABG results: ABG 10/18/21 10/18/21 10/18/21 01:47 05:31 07:37 Specimen Type ART ART ART Sample Site R Radial R Radial pH 7.31 L 7.22 L 7.26 L Bicarbonate Actual 22.1 21.0 L 19.2 L Total CO2 23 23 21 Base Excess -4 L -7 L -8 L O2 Saturation 95 85 L 84 L O2 % 100 100 100 ABG pCO2 44.0 51.5 H 42.5 ABG pO2 81 61 L 56 L Jas Test Negative Positive Positive Respiration Rate 12 14 20 O2 Delivery Device BiPAP ET Tube Adult Vent Vent Mode AC AC Tidal Volume 450 480 480 POC PEEP 12 14 18 Clinical Comments avaps Radiology Impression Chest X-Ray 10/17/21 00:45 IMPRESSION: Extensive bilateral multifocal pneumonia. Electronically Signed: Gela Cee MD at 1:06 EDT Reading Location ID and State: [facility] / [place] , Service support , Chest CTA 10/18/21 00:51 IMPRESSION: 1. No CTA demonstrated pulmonary embolism or arterial dissection. 2. Bilateral multifocal airspace disease consistent with pneumonia. Electronically Signed: Gela Cee MD at 1:56 EDT , KUB X-Ray 10/18/21 04:47 IMPRESSION: Orogastric tube tip is located in the left upper quadrant, probably in the stomach. Electronically Signed: Gela Cee MD at 6:00 EDT , Chest X-Ray 10/18/21 05:00 IMPRESSION: 1. Tip of endotracheal tube is less than 2 cm proximal to the jose alejandro. This probably should be repositioned. 2. Unchanged appearance of bilateral multifocal pneumonia. Electronically Signed: Gela Cee MD at 6:05 EDT Reading Location ID and State: [facility] / [place] , Service support , ADDENDUM: 10/18/21 0646 IMPRESSION: undefined Chest X-Ray 10/18/21 06:20 IMPRESSION: Endotracheal tube terminates 3.5 cm above the jose alejandro. Similar diffuse bilateral pulmonary consolidations with relative right lower lung sparing. Right IJ central catheter and enteric tube remain Electronically Signed: Skinny Morris MD at 8:04 EDT ,
[2021-10-18] MEDS: Potassium Chloride IVPB 10 MEQ 100 MEQ IV BOLUS ×4 (11:02→14:23)
[2021-10-18] MEDS: Chlorhexidine 15 ML PO ×2 (11:06→21:49)
[2021-10-18] MEDS: CHLORHEXIDINE GLUC 2% CLOTH 1 EACH TOWELETTE TOPICAL (11:07)
[2021-10-18 12:18] LABS: M R Staph aureus DNA By PCR Negative (Negative); Probe Check PASS; Specimen Processing Control PASS
--- NOTE | 2021-10-18 13:15 | CASEMGMT ---
RN CM called for initial transition planning/care coordination assessment as patient is currently intubated. RN ZOË introduced self and role at [facility]. willing to participate in assessment and is able to answer all questions appropriately. Care providers, pharmacy, and demographics verified. wishes for patient to discharge home, will monitor for need pending course of treatment and progress with therapy. states he has no further needs or concerns at this time. CM to follow for discharge planning needs that may arise. PCP: Rey URENA Specialists: none Preferred Pharmacy: [facility] Insurance: [place] Prescription Benefit: yes Living Will/HPOA: none LNOK: Living Arrangements: Patient lives with in a single story home with 2 steps and no railing to enter. Patient was independent at home prior to current illness. Transportation: self, DME/HHC: Patient has shower chair, raised toilet, and grab bars at home. No previous HHC or SNF. Disposition Plan: TBD by course of treatment and progress with therapy. Nirali FLANNERY, RN, CM
[2021-10-18 13:30] LABS: Allen Test Positive; Base Excess -9 mmol/L (-2 to +2); Bicarbonate 19.7 mmol/L (22-26); Blood Gas Specimen Type ART; FI02 100; Mode AC; O2 Delivery Device Adult Vent; PEEP 16; PO2 60 mmHG (75-100); RR 18; SITE R Radial; SO2 84 % (95-99); Total Carbon Dioxide 21 mmol/L; Vt 500; pCO2 51.7 mmHg (35-45); pH 7.19 (7.35-7.45)
[2021-10-18] MEDS: Hydrocortisone Sod Succinate 100 MG/2 ML Vial 50 MG IV ×2 (13:39→17:52)
[2021-10-18] MEDS: Propofol 10MG/Ml 1,000 MG/100 ML Bottle 13.7 MG CONT INF ×2 (14:27→17:50)
[2021-10-18] MEDS: Phenylephrine 40 mg/250 mL 0.9% NS 41.3 MG CONT INF (15:59)
--- NOTE | 2021-10-18 16:20 | CHAPLAIN ---
Type of Pastoral Visit _x__ Initial Visit ___ Follow-up Visit ___ On-call Visit ___ General Patient Visit ___ Spiritual Assessment ___ Family Conference ___ Bereavement ___ Rapid Response ___ Code Blue ___ Other (describe below) Pastoral Care Referral From ___ Patient ___ Family _x__ Nurse ___ Physician ___ Drywall Hanger Framer ___ Payroll Human Resources Assistant ___ Other (describe below) Sacrament/Intervention _x__ Active listening ___ Anointing ___ Alevism ___ Bereavement ___ Communion ___ Reshma exploration ___ ___ Life review _x__ Prayer ___ Reconciliation ___ Sacrament of Sick _x__ Supportive presence ___ Wedding ___ Other (describe below) Pastoral Comments RN notified this video editor of decline of this patient who is currently unresponsive; spouse is in the room after having conversation with hospitalist; offer of presence and support to spouse is well received; spouse is trying to contact other family members who live out of the area; daughter and FAISAL are only other members of family in the area and are soon to come to hospital; spouse admits to surprising and rapid turn of events; spouse is noticeably shaken; spouse is given presence, affirming his time to be at bedside and talk to his and contacting family; spouse indicates that family has had some connection with the [employer] reshma and welcomes prayer support and future visits
--- NOTE | 2021-10-18 16:35 | PCM.PN.BLA ---
Progress Note Had a 35-minute discussion with her family on advance care planning. Discussed with them the severity of her illness especially the fact that she was having MAP of 42 while on 3 pressors. She is currently proned and maintaining her sats at 84%. Procedures Hospitalists Procedures: 90631 Advncd Care Plan 30 Min
[2021-10-18] MEDS: LACTATED RINGERS 500 ML 999 ML IV (18:36)
[2021-10-18] MEDS: Vancomycin IV 500 MG/100 ML BAG 100 MG IV (19:33)
--- NOTE | 2021-10-18 19:45 | NURSING ---
Family at bedside. Emotional support provided, careplan, events of the day and current medications reviewed; family appeared to appreciate information and candor of information delivery, denied further questions at this time but encouraged to ask if any came up.
[2021-10-18] MEDS: Phenylephrine 40 mg/250 mL 0.9% NS 67.5 MG CONT INF ×2 (20:00→23:46)
[2021-10-18] MEDS: TITRATION PARAMETER CHANGE 1 EACH IV (21:14)
--- NOTE | 2021-10-18 22:05 | RAD_ITS ---
STUDY: PORTABLE AP PRONE CHEST X-RAY OF 2208 HOURS ON 10/18/2021 REASON FOR EXAM: 51-year-old female with low oxygen saturation. TECHNIQUE: A single view portable AP prone chest x-ray was performed per protocol. COMPARISON: 0616 hours on 10/18/2021. FINDINGS: Mild demineralization. Endotracheal tube with its distal tip lying 6.1 cm above the jose alejandro. Nasogastric tube with its distal tip in the gastric body. Right sided central venous pressure line with its distal tip in the superior vena cava. Extensive alveolar infiltrate in the left upper lobe and in the medial aspect of the left lower lobe. Extensive alveolar infiltrate in the right upper lobe. These infiltrates are moderately progressive on comparison to previous study of 0616 hours on 10/18/2021. Borderline cardiomegaly. RAD/Chest 1 View (Portable) IMPRESSION: 1. Moderately progressive extensive alveolar infiltrates and the left upper lobe, medial aspect of the left lower lobe, and right upper lobe. 2. Borderline hepatomegaly. 3. Endotracheal tube with its distal tip lies 6.1 cm above the jose alejandro. 4. Nasogastric tube with its distal tip in the gastric body. 5. Right-sided central venous pressure line with its distal tip in the superior vena cava. 6. Mild demineralization. Electronically Signed: Chaitanya Pearce MD at 23:57 EDT ,
[2021-10-18] MEDS: 0.9% Saline Lock 10 ML Syringe IV ×2 (22:39→22:57)
--- NOTE | 2021-10-18 22:50 | NURSING ---
called in regards to starting Nimbex to assist ventilations and work of breathing, w/ultimate goal of attempting to reduce sedative medications to help rebound pt's BP as she is maxxed on Levophed and Neosynephrine w/vasopressin as well. STAT PCXR obtained as well. Transfer RASS -3 goal to BIS goal of 30-60. Do not increase propofol over current rate of 30mcg.
[2021-10-19] VITALS (25 sets, daily range): BP systolic 49–78; BP diastolic 30–56; PULSE 110–121; RESP 18–35; TEMP 36.6–40.2; O2SAT 23–78
[2021-10-19] MEDS: Propofol 10MG/Ml 1,000 MG/100 ML Bottle 13.7 MG CONT INF ×2 (01:16→07:54)
[2021-10-19] MEDS: Hydrocortisone Sod Succinate 100 MG/2 ML Vial 50 MG IV ×3 (02:07→11:15)
[2021-10-19] MEDS: 0.9% Saline Lock 10 ML Syringe IV ×3 (02:11→11:16)
[2021-10-19] MEDS: Phenylephrine 40 mg/250 mL 0.9% NS 67.5 MG CONT INF ×3 (03:29→11:28)
[2021-10-19 04:28] LABS: Hematocrit 33.6 % (37-47); Hemoglobin 10.7 g/dL (12.0-15.0); Mean Corp Hgb Conc 31.8 g/dL (32-36); Mean Corpuscular Hgb 33.8 pg (27.0-32.0); Mean Platelet Vol. 11.6 fl (6.2-12.0); POSITIVE COUNT YES; POSITIVE DIFFERENTIAL YES; POSITIVE MORPHOLOGY YES; Platelet Count 150 K/mm3 (150-450); RBC Distribution Width CV 13.7 % (11.6-14.6); Red Blood Count 3.17 M/mm3 (4.2-5.4)
[2021-10-19] MEDS: Norepinephrine 16 mg/250 mL 0.9% NS 28.1 MG CONT INF (04:34)
[2021-10-19 04:39] LABS: Differential Indicated MANUAL DIFF
[2021-10-19 04:40] LABS: Macrocytosis 2+
[2021-10-19 05:02] LABS: Absolute Lymphocyte Count 0.76 X10^3/uL (0.83-4.51); Lymphocyte 2 % (19-41); Metamyelocyte 4 % (0-1); Monocyte 4 % (0-10); Myelocyte 3 % (0-0); Neutrophil-Band 18 % (0-5); Neutrophil-Segmented 69 % (47-70); Total Cells Counted 100 (MANUAL DIFF)
[2021-10-19 05:03] LABS: ALB/GLOB Ratio 0.3 RATIO (0.9-2.4); AST(SGOT) 341 U/L (15-37); Alanine Aminotransfer ALT/SGPT 134 U/L (13-56); Albumin, Serum 1.2 g/dL (3.2-5.0); Alkaline Phosphatase 71 U/L (45-117); Anion Gap 11 (5-15); BUN 56 mg/dL (7-18); BUN/Creat Ratio 15.9 RATIO (10-20); Calcium,Total 6.9 mg/dL (8.5-10.1); Chloride 98 mmol/L (98-107); Creatinine, Serum 3.52 mg/dL (0.55-1.02); EST Glomerular Filtration Rate 15 mL/min (>60); Est Glom Filt Rate - Afr Amer 18 mL/min (>60); Globulin 3.9 g/dL (2.2-4.2); Glucose 97 mg/dL (74-106); Platelet Estimate ADEQUATE (ADEQ); Potassium 5.3 mmol/L (3.5-5.1); Protein, Total 5.1 g/dL (6.4-8.2); Sodium Level 128 mmol/L (136-145)
[2021-10-19 05:04] LABS: Red Cell Morphology NORM C+C NORMAL (NORM C&C)
[2021-10-19] MEDS: Heparin Injection (Vial) 5,000 UNIT/ML VIAL 5000 UNIT SC (05:53)
--- NOTE | 2021-10-19 06:29 | PN.CC_ITS ---
Assessment & Plan Assessment/Plan (1) Acute hypoxemic respiratory failure: PLAN: Plan RECOMMENDATIONS: 1. Continue assist-control mode mechanical ventilation. Wean FiO2/PEEP for sat urations greater than 90%. 2. Continue vasopressor support in an attempt to maintain a mean arterial pressure at or above 65 mmHg. 3. Obtain nephrology consultation. 4. Continue antimicrobials per ID recommendations. 5. Continue prone positioning trials as tolerated. 6. Continue appropriate ICU prophylaxis. IMPRESSIONS: 1. Acute hypoxemic respiratory failure The patient presented with shortness of breath and hypoxemia in the setting of m ultilobar pneumonia resulting in ARDS, ultimately requiring invasive mechanical ventilatory support secondary to Legionella pneumonia. The patient will be continued on assist control mode of mechanical ventilation. A lung protective ventilatory strategy will be undertaken. Wean FiO2 and PEEP as tolerated for saturations greater than 90%. Continue proning trials as tolerated. Continue antimicrobials per ID recommendations along with appropriate ICU prophylaxis. Although ECMO would be a consideration, the patient is far too unstable clinically to consider transfer to a tertiary care facility. 2. Septic shock with multisystem organ failure The patient presented with sepsis due to Legionella pneumonia with acute sepsis related organ dysfunction as evidenced by acute hypoxemic respiratory failure requiring invasive mechanical ventilatory support and acute kidney injury. The patient developed fluid refractory hypotension, necessitating vasopressor support to maintain a mean arterial pressure at or above 65 mmHg. As noted above, we will continue empiric antimicrobials, per ID recommendations. 3. Acute kidney injury/hyponatremia/hypokalemia Likely prerenal in etiology/ischemic ATN in the setting of #2. The patient remains hypotensive, despite being on maximal support on 3 vasopressors. Her renal function has subsequently worsened. Accordingly, will obtain nephrology consultation. 4. Acute liver injury Secondary to #2. Continue supportive measures as noted above. 5. Hypertension/depression/neuropathy/GERD Complicates care, management, recovery and prognosis. Continue to hold home antihypertensives for now. CODE status: Discussed CODE status at length including difference between FULL code, DNR-CCA and DNR-CC status. Following discussions about the differences in these status, patient's family requested DNR-CCA CODE STATUS. TIME: 82 minutes of critical care time, independent of procedures, was spent addressing the patient's acute hypoxemic respiratory failure, septic shock, acute kidney injury, acute liver injury, review of all data and collaboration with the care team. Subjective Subjective The patient was seen and examined at the bedside this morning. Events from the last 24 hours have been reviewed. The patient is currently afebrile. Unfortunately, she has continued to decompensate from a clinical perspective over the last 24 hours. She is currently in prone position on assist control mode mechanical ventilation with an FiO2 requirement of 100% and PEEP of 16. She remains hypotensive, despite being on maximal doses of Levophed, vasopressin and phenylephrine. Urine output has decreased. White count is elevated at 38,000 with worsening renal and liver function. She is currently documented to be overall net +8.1 L for the hospitalization. I did personally call and speak [facility] for possible ECMO and CRRT. However, he was in agreement that the patient is too unstable clinically to even consider transfer at this time. He did advise that if the patient were to become more stable that she could certainly be reconsidered for transfer. I did meet personally with the patient's family and updated them on her continued clinical decompensation. Goals of care discussion was undertaken. Following a family discussion, they have elected to transition her to DNR CCA. Objective Data Objective Data The patient's most recent lab work, culture data and imaging studies have all been personally reviewed. Legionella antigen was positive on October 18. Blood and sputum cultures are pending. Vital Signs: Vital Signs Temp Pulse Resp BP Pulse Ox O2 Del Method O2 Flow Rate 98.4 F 116 H 18 67/44 L 71 Mechanical Ventilator 100 10/19/21 01:00 10/19/21 05:00 10/19/21 05:00 10/19/21 05:00 10/19/21 05:00 10/19/21 05:00 10/18/21 04:01 FiO2 100 10/19/21 05:00 Oxygen Flow Rate (L/min) 100 Oxygen Delivery Method Mechanical Ventilator Weight: 163 lb 5.8 oz Body Mass Index (BMI) 27.1 Intake & Output: Intake and Output for Last 24 Hours 10/17/21 10/18/21 10/19/21 23:59 23:59 23:59 Intake Total 7679.83 / 7699.38 889.59 / 889.59 Output Total 415 / 415 Balance 7264.83 / 7284.38 879.59 / 879.59 Lab / Micro Data Attestation: I reviewed the patient's lab results. Result Diagrams: 10/19/21 04:20 10/19/21 04:20 Labs: Laboratory Results - last 24 hr 10/18/21 06:20: Lactic Acid 3.3 H* 10/18/21 07:50: Sodium 129 L, Potassium 3.3 L, Chloride 94 L, Carbon Dioxide 20.0 L, Anion Gap 15, BUN 41 H, Creatinine 1.62 H, Estim Creat Clear Calc 38.46, Est GFR (MDRD) Af Amer 43 L, Est GFR (MDRD) Non-Af 36 L, BUN/Creatinine Ratio 25.3 H, Glucose 137 H, Calcium 7.8 L, Magnesium 1.6 10/18/21 07:50: Total Creatine Kinase 48, Triglycerides 507 H 10/18/21 08:50: MRSA (PCR) Negative 10/19/21 04:20: WBC 38.0 H*, RBC 3.17 L, Hgb 10.7 L, Hct 33.6 L, MCV 106.0 H D, MCH 33.8 H, MCHC 31.8 L, RDW Std Deviation 54.0 H, RDW Coeff of Elvira 13.7, Plt Count 150, MPV 11.6, Neut % (Auto) Not Reportable, Absolute Neuts (auto) 33.0 H, Absolute Lymphs (auto) 0.76 L, Total Counted 100, Neutrophils % (Manual) 69, Band Neutrophils % 18 H, Lymphocytes % (Manual) 2 L, Monocytes % (Manual) 4, Metamyelocytes % 4 H, Myelocytes % 3 H, Diff Path Review May foll, Platelet Est imate ADEQUATE, RBC Morphology NORM C+C, Macrocytosis 2+ 10/19/21 04:20: Sodium 128 L, Potassium 5.3 H, Chloride 98, Carbon Dioxide 19.0 L, Anion Gap 11, BUN 56 H, Creatinine 3.52 H, Estim Creat Clear Calc 17.70, Est GFR (MDRD) Af Amer 18 L, Est GFR (MDRD) Non-Af 15 L, BUN/Creatinine Ratio 15.9, Glucose 97, Calcium 6.9 L, Total Bilirubin 1.50 H, AST 341 H, ALT 134 H, Alkaline Phosphatase 71, Total Protein 5.1 L, Albumin 1.2 L, Globulin 3.9, Albumin/Globulin Ratio 0.3 L Micro: Microbiology 10/18/21 04:55 Sputum, Induced/Lukens Gram Stain - Final 10/18/21 01:55 Urine Catheter - Catheter Legionella Antigen - Final Legionella Antigen 10/18/21 01:55 Urine Catheter - [place] Streptococcus pneumoniae Antigen (M - Final 10/18/21 00:06 Nasal Secretion SARS-CoV-2 & FLU Antigen (Rapid) - Final ABG Data ABG results: ABG 10/18/21 10/18/21 07:37 13:24 Specimen Type ART ART Sample Site R Radial R Radial pH 7.26 L 7.19 L* Bicarbonate Actual 19.2 L 19.7 L Total CO2 21 21 Base Excess -8 L -9 L O2 Saturation 84 L 84 L O2 % 100 100 ABG pCO2 42.5 51.7 H ABG pO2 56 L 60 L Jas Test Positive Positive Respiration Rate 20 18 O2 Delivery Device Adult Vent Adult Vent Vent Mode AC AC Tidal Volume 480 500 POC PEEP 18 16 Crit Call To/Read Back Yes Blood Gas Notified Whom brown Radiography Diagnostic Testing: Radiology Impression Chest X-Ray 10/18/21 05:00 IMPRESSION: 1. Tip of endotracheal tube is less than 2 cm proximal to the jose alejandro. This probably should be repositioned. 2. Unchanged appearance of bilateral multifocal pneumonia. Electronically Signed: Gela Cee MD at 6:05 EDT Reading Location ID and State: [facility] / [place] , Service support , ADDENDUM: 10/18/2146 IMPRESSION: undefined Chest X-Ray 10/18/21 06:20 IMPRESSION: Endotracheal tube terminates 3.5 cm above the jose alejandro. Similar diffuse bilateral pulmonary consolidations with relative right lower lung sparing. Right IJ central catheter and enteric tube remain Electronically Signed: Skinny Morris MD at 8:04 EDT Reading Location ID and State: [facility] / [place] Tel , Service support , Chest X-Ray 10/18/21 22:05 IMPRESSION: 1. Moderately progressive extensive alveolar infiltrates and the left upper lobe, medial aspect of the left lower lobe, and right upper lobe. 2. Borderline hepatomegaly. 3. Endotracheal tube with its distal tip lies 6.1 cm above the jose alejandro. 4. Nasogastric tube with its distal tip in the gastric body. 5. Right-sided central venous pressure line with its distal tip in the superior vena cava. 6. Mild demineralization. Electronically Signed: Chaitanya Pearce MD at 23:57 EDT , Physical Exam Const Constitutional Narrative: Intubated, sedated and mechanically ventilated. Currently in prone position. No ventilator dyssynchrony. HEENT normocephalic and head/scalp atraumatic Mouth: endotracheal tube in place and OG tube in place Eyes PERRL Neck supple General: CVC in place Resp Auscultation: wheezes and diminished lung sounds; Negative for rales or rhonchi Cardio S1 normal heart sound and S2 normal heart sound Rate: tachycardic GI GI Narrative: Unable to perform abdominal examination as the patient is in prone position. Extremity no clubbing, cyanosis or edema Skin no rashes or lesions noted Neuro Sensorium / Orientation: sedated on vent Charges/Coding Procedures Hospitalists Procedures: 96047 Critial Care 1st Hr Multi [facility] Codes Hospitalists' Procedures Procedures: 02701 Critial Care Addl 30 Min
[2021-10-19 06:50] LABS: Allen Test Positive; Base Excess -15 mmol/L (-2 to +2); Bicarbonate 14.7 mmol/L (22-26); Blood Gas Specimen Type ART; FI02 100; Mode AC; O2 Delivery Device Adult Vent; PEEP 16; PO2 53 mmHG (75-100); RR 18; SITE R Radial; SO2 73 % (95-99); Total Carbon Dioxide 16 mmol/L; Vt 500; pCO2 47.8 mmHg (35-45)
--- NOTE | 2021-10-19 06:54 | CPS ---
critical values on ABG. Dr shirley notified of critical values. Not enough arterial blood to re-rerun ABG.
--- NOTE | 2021-10-19 07:37 | NURSING ---
Patient was moved from prone positioning to supine and leaned to the right side at this time. Patient tolerated well and family returned to bedside shortly after patient returned to supine position.
[2021-10-19] MEDS: TITRATION PARAMETER CHANGE 1 EACH IV (07:56)
--- NOTE | 2021-10-19 08:10 | RAD_ITS ---
STUDY: X-RAY CHEST REASON FOR EXAM: Female, 51 years old. Respiratory Failure TECHNIQUE: Single frontal view of the chest. COMPARISON: 10/18/2021 FINDINGS: There is an endotracheal tube in place terminating 4.2 cm above the jose alejandro. There is a right-sided central venous catheter in place terminating within the expected region of the superior vena cava. There is an enteric tube in place terminating caudal to the inferior margin of the image. There are stable bilateral patchy opacities throughout the left lung and within the right upper and midlung. Normal size heart. Normal mediastinum and adrianna. Normal visualized pulmonary arteries. Normal visualized aortic arch and descending thoracic aorta. Normal visualized thoracic spine. Normal visualized ribs, clavicles, and shoulders. There is no demonstrated abnormality of the visualized soft tissue structures of the upper abdomen. RAD/Chest 1 View (Portable) IMPRESSION: Stable bilateral patchy opacities may be secondary to some combination of edema, pneumonia and/or atelectasis. Electronically Signed: Smitha Kmi MD at 8:37 EDT ,
[2021-10-19] MEDS: Acetaminophen 325 MG Tablet 650 MG PO (09:25)
[2021-10-19] MEDS: Famotidine 20 MG Tablet GT (09:25)
--- NOTE | 2021-10-19 09:38 | PCM.PN.ID ---
Physical Exam Narrative On vent, multiple pressors, family at bedside. Const Constitutional Narrative: sedated, paralyzed, intubated Resp Effort and Inspection: mechanically ventilated Auscultation: diminished lung sounds Cardio Rate: tachycardic GI soft to palpation and non-tender Extremity General Extremity: edema Skin no rashes or lesions noted Skin Narrative: Feet cyanotic ID ID: Route of nutrition/ use of supplements: [] Nutritional Intake: [] IV Site: [] Belcher Catheter: [] Assessment & Plan Assessment/Plan (1) Legionella pneumonia: PLAN: On 3 pressors, paralyzed. Worsening ANASTASIA, remains hypoxic and hypotensive. Adjusting zosyn dose, vanc trough pending for this evening. On vanc/zosyn/azithro. Per family, only animal/bird contact is dogs at home. No unusual inhalations/exposures. had covid about 3 weeks. Pt had negative testing and minimal/no symptoms during this time. Covid neg here. Bcx and sputum cx neg so far. Will follow, d/w Dr. Farooq (2) Acute hypoxemic respiratory failure: (3) Septic shock:
[2021-10-19] MEDS: Chlorhexidine 15 ML PO (09:45)
--- NOTE | 2021-10-19 10:38 | CASEMGMT ---
Social Work Pt with significant health decline. SW met with pt's and daughter in the patient room. Pt's father, friend, brother and sister are also present in the room with pt. SW provided emotional support to family and discussed different ways of handling loss. Pt /daughter deny needs at this time. Family made aware that SW will remain available. Nursing updated of SW availability as well. MARLENE Freire
--- NOTE | 2021-10-19 10:54 | CASEMGMT ---
Tertiary facilities in-network with patient's insurance: [facility], [facility], [facility], [facility], [facility], , [facility], [facility].
--- NOTE | 2021-10-19 12:04 | CON.PCM.RE_ITS ---
Assessment & Plan Assessment/Plan (1) ANASTASIA (acute kidney injury): PLAN: Baseline renal function appears to be normal. Admitted with severe Legionella pneumonia, ARDS. Currently in severe septic shock, 3 pressors. Lactic acidosis. Anuric renal failure. Ideally she would need renal replacement therapy but is too unstable. Currently on 3 pressors. I doubt she will tolerate dialysis. ICU has contacted [facility] for potential transfer with CRRT and ECMO. She was considered too unstable for transfer. If her clinical status changes, best option would be to transfer to tertiary care center. Discussed with family at bedside. Discussed with ICU attending. HPI Consult Data Date of Consult: 10/19/21 HPI Narrative Reason for Consultation: ANASTASIA HPI Narrative: GISSELLE PULIDO, is a 51 F who presents to the hospital with shortness of breath. Nephrology on consult for acute renal failure. She was diagnosed with Legionella pneumonia, currently in ARDS. Intubated, 100% FiO2, high PEEP. Currently on 3 pressors with blood pressure around 73/55. No urine output. Overall net +8 L since admission. Review of systems unable to be obtained. Baseline renal function appears to be normal. [facility] Medical History (Updated 10/19/21 @ 12:[address] Elian Mukherjee MD) Anxiety disorder Depression Essential hypertension Fatigue GERD (gastroesophageal reflux disease) Hot flashes Malaise Pelvis tilted Preop cardiovascular exam Prolapsed bladder Restless leg Tachycardia Urge incontinence of urine Vitamin D deficiency Home Medications multivitamin 1 ea PO DAILY 06/14/15 [History Last Taken 09/22/19] cholecalciferol (vitamin D3) 125 mcg (5,000 unit) disintegrating tablet 5,000 unit PO DAILY 07/15/19 [History Last Taken 09/22/19] bupropion HCl 100 mg tablet 100 mg PO QDAY 09/22/19 [History Last Taken Unknown] biotin 10,000 mcg capsule 10,000 mcg PO DAILY 11/28/19 [History Last Taken Unknown] BP monitor #1 ea 12/03/19 [Rx Last Taken Unknown] lactobacillus combination no.4 3 billion cell capsule (Probiotic) 3,000 mmu cells PO DAILY 03/19/20 [History Last Taken Unknown] tramadol 50 mg tablet 50 mg PO Q6H PRN pain #90 tabs 09/16/20 [Rx Last Taken Unknown] carvedilol 12.5 mg tablet 12.5 mg PO BID #180 tabs 09/28/20 [Rx Last Taken Unknown] duloxetine 20 mg capsule,delayed release 20 mg PO DAILY #90 caps 09/28/20 [Rx Last Taken Unknown] duloxetine 60 mg capsule,delayed release 60 mg PO DAILY #90 caps 09/28/20 [Rx Last Taken Unknown] fluticasone propionate 50 mcg/actuation nasal spray,suspension 1 spray intranasal BID #16 grams 09/28/20 [Rx Last Taken Unknown] gabapentin 300 mg capsule 300 mg PO QHS #90 caps 09/28/20 [Rx Last Taken Unk nown] lisinopril 5 mg tablet 5 mg PO DAILY #90 tabs 09/28/20 [Rx Last Taken Unknown] loratadine 10 mg capsule 10 mg PO DAILY #30 caps 09/28/20 [Rx Last Taken Unknown] omeprazole 20 mg capsule,delayed release 20 mg PO DAILY #90 caps 09/28/20 [Rx Last Taken Unknown] oxybutynin chloride 10 mg tablet,extended release 24 hr 10 mg PO DAILY #90 tabs 09/28/20 [Rx Last Taken Unknown] Allergy/AdvReac Type Severity Reaction Status Date / Time tramadol Allergy Severe Itching Verified 10/17/21 23:47 amoxicillin trihydrate AdvReac Nausea/Vom/ Verified 10/17/21 23:47 [From Augmentin] Diarrhea potassium clavulanate AdvReac Nausea/Vom/ Verified 10/17/21 23:47 [From Augmentin] Diarrhea Family History Mother Breast cancer Father Diabetes Heart disease Surgical History Feeling of incomplete bladder emptying H/O hysterectomy with oophorectomy H/O umbilical hernia repair YOKASTA AND BSO DUE TO ENDOMETRIOSIS IN 1999 Social History Smoking Status: Current every day smoker tobacco type: cigarettes alcohol intake: current alcohol intake frequency: a few times a month substance use type: does not use caffeine: Yes Type: coffee Number of servings: 2 ROS ROS Narrative Could not be obtained Review of Systems ROS Unobtainable: due to endotracheal tube Physical Exam Narrative intubated no obvious distress no pallor no icterus no JVD s1s2 no murmurs lungs clear abdomen soft no organomegaly no edema no cyanosis vasquez + Lab / Micro Data Result Diagrams: 10/19/21 04:20 10/19/21 04:20 Labs: Laboratory Results - last 24 hr 10/18/21 08:50: MRSA (PCR) Negative 10/19/21 04:20: WBC 38.0 H*, RBC 3.17 L, Hgb 10.7 L, Hct 33.6 L, MCV 106.0 H D, MCH 33.8 H, MCHC 31.8 L, RDW Std Deviation 54.0 H, RDW Coeff of Elvira 13.7, Plt Count 150, MPV 11.6, Neut % (Auto) Not Reportable, Absolute Neuts (auto) 33.0 H, Absolute Lymphs (auto) 0.76 L, Total Counted 100, Neutrophils % (Manual) 69, Band Neutrophils % 18 H, Lymphocytes % (Manual) 2 L, Monocytes % (Manual) 4, Metamyelocytes % 4 H, Myelocytes % 3 H, Diff Path Review May , Platelet Estimate ADEQUATE, RBC Morphology NORM C+C, Macrocytosis 2+ 10/19/21 04:20: Sodium 128 L, Potassium 5.3 H, Chloride 98, Carbon Dioxide 19.0 L, Anion Gap 11, BUN 56 H, Creatinine 3.52 H, Estim Creat Clear Calc 17.70, Est GFR (MDRD) Af Amer 18 L, Est GFR (MDRD) Non-Af 15 L, BUN/Creatinine Ratio 15.9, Glucose 97, Calcium 6.9 L, Total Bilirubin 1.50 H, AST 341 H, ALT 134 H, Alkalin e Phosphatase 71, Total Protein 5.1 L, Albumin 1.2 L, Globulin 3.9, Albumin/Globulin Ratio 0.3 L Micro: Microbiology 10/18/21 04:55 Sputum, Induced/Lukens Gram Stain - Final 10/18/21 04:55 Sputum, Induced/Lukens Respiratory Culture - Preliminary Appears to be normal respiratory buster. Further studies to follow. ABG Data ABG results: ABG 10/18/21 10/19/21 13:24 06:43 Specimen Type ART ART Sample Site R Radial R Radial pH 7.19 L* 7.10 L* Bicarbonate Actual 19.7 L 14.7 L Total CO2 21 16 Base Excess -9 L -15 L O2 Saturation 84 L 73 L O2 % 100 100 ABG pCO2 51.7 H 47.8 H ABG pO2 60 L 53 L Jas Test Positive Positive Respiration Rate 18 18 O2 Delivery Device Adult Vent Adult Vent Vent Mode AC AC Tidal Volume 500 500 POC PEEP 16 16 Crit Call To/Read Back Yes Yes Blood Gas Notified [facility] Impression Chest X-Ray 10/18/21 22:05 IMPRESSION: 1. Moderately progressive extensive alveolar infiltrates and the left upper lobe, medial aspect of the left lower lobe, and right upper lobe. 2. Borderline hepatomegaly. 3. Endotracheal tube with its distal tip lies 6.1 cm above the jose alejandro. 4. Nasogastric tube with its distal tip in the gastric body. 5. Right-sided central venous pressure line with its distal tip in the superior vena cava. 6. Mild demineralization. Electronically Signed: Chaitanya Pearce MD at 23:57 EDT , Chest X-Ray 10/19/21 08:10 IMPRESSION: Stable bilateral patchy opacities may be secondary to some combination of edema, pneumonia and/or atelectasis. Electronically Signed: Smitha Kim MD at 8:37 EDT ,
--- NOTE | 2021-10-19 13:10 | NURSING ---
Patient passed at this time family members at the bedside.
--- NOTE | 2021-10-19 13:29 | CHAPLAIN ---
Type of Pastoral Visit ___ Initial Visit _x__ Follow-up Visit ___ On-call Visit ___ General Patient Visit ___ Spiritual Assessment ___ Family Conference ___ Bereavement ___ Rapid Response ___ Code Blue ___ Other (describe below) Pastoral Care Referral From ___ Patient _x__ Family _x__ Nurse ___ Physician ___ Parcel Post Weigher ___ Dining Service Worker ___ Other (describe below) Sacrament/Intervention _x__ Active listening ___ Anointing ___ Confucianism ___ Bereavement ___ Communion ___ Reshma exploration ___ ___ Life review _x__ Prayer ___ Reconciliation ___ Sacrament of Sick _x__ Supportive presence ___ Wedding ___ Other (describe below) Pastoral Comments met with family as patient continues to be critical and unresponsive; pt is not expected to survive; spouse, daughter, sister, and father are in the room; offer of support, presence, and prayer well received; encouraged presence of family in the room; asked what pt would like to say to them and family responded; family states that mother of patient is on her way from [facility] to see daughter before she passes
--- NOTE | 2021-10-19 13:31 | CHAPLAIN ---
Type of Pastoral Visit ___ Initial Visit ___ Follow-up Visit ___ On-call Visit ___ General Patient Visit ___ Spiritual Assessment ___ Family Conference _x__ Bereavement ___ Rapid Response ___ Code Blue ___ Other (describe below) Pastoral Care Referral From ___ Patient ___ Family _x__ Nurse _x__ Physician ___ Organizational Effectiveness Director ___ Tumbling And Rolling Supervisor ___ Other (describe below) Sacrament/Intervention ___ Active listening ___ Anointing ___ Roman Catholic _x__ Bereavement ___ Communion ___ Reshma exploration ___ ___ Life review _x__ Prayer ___ Reconciliation ___ Sacrament of Sick _x__ Supportive presence ___ Wedding ___ Other (describe below) Pastoral Comments in rounds again in ICU the patient had just ; pt had before the planned extubation; family members gathered in room but silent; offered condolences, quoted scripture, and offered prayer and support to family
--- NOTE | 2021-10-19 14:00 | PCM.DEATH ---
Preliminary Cause of Preliminary Cause of Preliminary Cause of : Septic shock due to Legionella pneumonia Date of Admission: 10/18/21 Date of : 10/19/21 Principle Diagnosis Problem List: Active and Suspected Problems (Updated 10/19/21 @ 12:[address] Elian Mukherjee MD) ANASTASIA (acute kidney injury) (Acute) Septic shock (Acute) Acute hypoxemic respiratory failure (Acute) Legionella pneumonia (Acute) Sepsis (Acute) Hospital Course Mrs. Orellana is a 51-year-old female who presented to the hospital significant shortness of breath. She was found to have significant bilateral pneumonia was initially started on BiPAP but ultimately had to be intubated. She declined rapidly and progressed into septic shock requiring 3 pressors. She also initially had to be proned to try to improve respiratory status. She did have multiple negative test for COVID despite her having tested positive several weeks ago. Urine antigen test did come back positive for Legionella pneumonia. Unfortunately today her renal failure progressed and she would not be able to tolerate dialysis secondary to her hypotension. Multiple family discussions took place, they elected to change her from a full code to DNR CCA. We were waiting for her mother to arrive prior to making a decision to withdraw care, unfortunately Mrs. Orellana on 10/19/2021 at 1310. Visit Charges Inpatient E&M: 23944 Disch Hosp
[2021-10-19 15:49] LABS: Pathologist Review Reviewed
== END 2021-10-19 13:10 | DRG 871 ==
LOC: ED 10-18 00:27 → ICU 10-18 02:18
PROVIDERS: Internal Medicine Critical Care Medicine; Admitting Provider Hospitalist; Emergency Provider Emergency Medicine; PCP Nurse Practitioner; Visit Provider Family Medicine
DX: A41.9 Sepsis, unspecified organism (principal); R65.21 Severe sepsis with septic shock; N17.0 Acute kidney failure with tubular necrosis; J80 Acute respiratory distress syndrome; J96.01 Acute respiratory failure with hypoxia; A48.1 Legionnaires' disease; E87.1 Hypo-osmolality and hyponatremia; F17.210 Nicotine dependence, cigarettes, uncomplicated; N18.2 Chronic kidney disease, stage 2 (mild); E87.6 Hypokalemia; I12.9 Hypertensive chronic kidney disease with stage 1 through stage 4 chronic kidney disease, or unspecified chronic kidney disease; G62.9 Polyneuropathy, unspecified; K21.9 Gastro-esophageal reflux disease without esophagitis; F41.9 Anxiety disorder, unspecified; E55.9 Vitamin D deficiency, unspecified; F32.A Depression, unspecified; Z20.822 Contact with and (suspected) exposure to COVID-19; Z66 Do not resuscitate; Z79.899 Other long term (current) drug therapy
CPT/HCPCS: 31500; 31720; 36556; 36600; 71045; 71046; 71275; 74018; 80048; 80053; 80076; 82550; 82803; 83605; 83735; 83880; 84478; 84484; 85025; 85379; 87040; 87070; 87205; 87428; 87449; 87635; 87641; 93005; 94002; 94003; 94640; 97802; 99251; 99285; J7030; J7040; J7050; J7120; A4216; C1751; G0463; J0696; J1940; J3010; J3490; U0003; U0005